=== PATIENT | male | born 1990 | race Hispanic/Latino ===

== ENCOUNTER 2018-11-18 20:27 | Emergency (ER) | payer OTHER ==
[2018-11-18 21:27] LABS: Protime INR 0.89
[2018-11-18 21:32] LABS: Absolute Lymphocytes (CBC) 2.2 K/uL (0.7-4.9); Absolute Monocytes 0.4 K/uL (0.1-1.3); Absolute Neutrophil 3.8 K/uL (1.8-8.0); Basophils % 0.4 % (0-1.3); Eosinophils % 2.8 % (0-4.4); Hematocrit 48.1 % (39.6-49.0); Lymphocytes % 33.1 % (15.3-44.8); MPV 8.2 fL (7.6-11.3); Monocytes % 6.2 % (3.3-12.3); RBC Red Blood Cell Count 5.66 M/uL (4.33-5.43)
[2018-11-18 21:33] LABS: BUN Blood Urea Nitrogen 9 mg/dL (7-18); Bicarbonate 27 mmol/L (21-32); Glucose Level 179 mg/dL (74-106); Potassium 3.7 mmol/L (3.5-5.1); Sodium Level 142 mmol/L (136-145)
--- NOTE | 2018-11-18 21:42 | ER ---
Nurse's Notes [facility] Name: Alfonso Weldon Age: 28 yrs Sex: Male : 1990 Arrival Date: 11/18/2018 Time: 20:28 Bed 5 Private MD: Diagnosis: Gastrointestinal hemorrhage, unspecified Presentation: 11/18 20:35 Presenting complaint: Patient states: bright red blood with every BM for 3 weeks [employer]LECT[employer]. ak1 pt seen 3 weeks ago for gastritis and treated, after finished medications bright red blood started in his BM. Transition of care: patient was not received from another setting of care. Onset of symptoms is unknown. Risk Assessment: Do you want to hurt yourself or someone else? Patient reports no desire to harm self or others. Initial Sepsis Screen: Does the patient meet any 2 criteria? No. Patient's initial sepsis screen is negative. Does the patient have a suspected source of infection? No. Patient's initial sepsis screen is negative. Care prior to arrival: None. 20:35 Method Of Arrival: Ambulatory ak1 20:35 Acuity: YONATAN 3 ak1 Triage Assessment: 20:37 General: Appears in no apparent distress. Behavior is calm, cooperative. Pain: Denies ak1 pain. Historical: - Allergies: 20:37 No Known Allergies; ak1 - Home Meds: 20:37 None [Active]; ak1 - PMHx: 20:37 None; ak1 - PSHx: 20:37 Hernia repair; ak1 - Immunization history:: Adult Immunizations unknown. - Social history:: Smoking status: Patient uses tobacco products, smokes one-half pack cigarettes per day, Patient uses alcohol, weekly. - Ebola Screening: : No symptoms or risks identified at this time. Screenin:56 Abuse screen: Denies threats or abuse. Denies injuries from another. Nutritional rr5 screening: No deficits noted. Tuberculosis screening: No symptoms or risk factors identified. Fall Risk IV access (20 points). Total Hung Fall Scale indicates No Risk (0-24 pts). Assessment: 20:50 General: Appears in no apparent distress. comfortable, Behavior is calm, cooperative, rr5 appropriate for age. Pain: Denies pain. Neuro: Level of Consciousness is awake, alert, obeys commands, Oriented to person, place, time, situation, Appropriate for age. Cardiovascular: Capillary refill < 3 seconds Patient's skin is warm and dry. Respiratory: Airway is patent Respiratory effort is even, unlabored, Respiratory pattern is regular, symmetrical. : No signs and/or symptoms were reported regarding the genitourinary system. EENT: No signs and/or symptoms were reported regarding the EENT system. Derm: Skin temperature is warm. Musculoskeletal: Circulation, motion, and sensation intact. Capillary refill < 3 seconds, Range of motion: intact in all extremities. 20:50 GI: Abdomen is round non-distended, Reports bloody stool. rr5 21:20 Reassessment: Patient appears in no apparent distress at this time. Patient is alert, rr5 oriented x 3, equal unlabored respirations, skin warm/dry/pink. no complaints made awaiting for result. 21:49 Reassessment: Patient appears in no apparent distress at this time. Patient is alert, rr5 oriented x 3, equal unlabored respirations, skin warm/dry/pink. discharge instruction given and explained without complaints made. Patient denies pain at this time. Vital Signs: 20:37 BP 139 / 89; Pulse 96; Resp 18; Temp 98.8(O); Pulse Ox 97% on R/A; Weight 79.38 kg (R); ak1 Height 5 ft. 5 in. (165.10 cm) (R); Pain 0/10; 21:30 BP 131 / 71; Pulse 85; Resp 17; Pulse Ox 99% on R/A; rr5 20:37 Body Mass Index 29.12 (79.38 kg, 165.10 cm) ak1 ED Course: 20:28 Patient arrived in ED. am2 20:36 Triage completed. ak1 20:37 Arm band placed on Patient placed in waiting room, Patient notified of wait time. ak1 20:40 Attila Chisholm MD is Attending Physician. gs 20:40 Patient has correct armband on for positive identification. Placed in gown. Bed in low rr5 position. Call light in reach. Side rails up X2. 20:50 Trevor Alejo RN is Primary Nurse. rr5 21:06 Inserted saline lock: 20 gauge in right antecubital area, using aseptic technique. ag4 Blood collected. 21:40 Michael Vigil MD is Referral Physician. gs 21:50 No provider procedures requiring assistance completed. IV discontinued, intact, rr5 bleeding controlled, No redness/swelling at site. Pressure dressing applied. Administered Medications: No medications were administered Outcome: 21:41 Discharge ordered by . 21:50 Discharged to home ambulatory, with family. rr5 21:50 Condition: stable 21:50 Discharge instructions given to patient, Instructed on discharge instructions, follow up and referral plans. Demonstrated understanding of instructions, follow-up care. 22:07 Patient left the ED. rr5 Signatures: Michelle Corbett RN RN ak1 Stephanie Garcia am2 Attila Chisholm MD MD Trevor Alejo RN RN rr5 Junior Curtis ag4
--- NOTE | 2018-11-18 21:42 | EDPHYS ---
Physician Documentation [facility] Name: Alfonso Weldon Age: 28 yrs Sex: Male : 1990 Arrival Date: 11/18/2018 Time: 20:28 Bed 5 Private MD: ED Physician Attila Chisholm HPI: 11/18 21:38 This 28 yrs old Male presents to ER via Ambulatory with complaints of Bloody gs Stools. 21:38 Onset: The symptoms/episode began/occurred 1 month(s) ago. Modifying factors: The gs symptoms are alleviated by nothing, The symptoms are aggravated by movement. Associate signs and symptoms: Pertinent positives: lower GI bleeding, mixed with stool, Pertinent negatives: abdominal pain, constipation. The patient has experienced similar episodes in the past, a few times. Historical: - Allergies: 20:37 No Known Allergies; ak1 - Home Meds: 20:37 None [Active]; ak1 - PMHx: 20:37 None; ak1 - PSHx: 20:37 Hernia repair; ak1 - Immunization history:: Adult Immunizations unknown. - Social history:: Smoking status: Patient uses tobacco products, smokes one-half pack cigarettes per day, Patient uses alcohol, weekly. - Ebola Screening: : No symptoms or risks identified at this time. ROS: 21:38 All other systems are negative. gs Exam: 21:38 Head/Face: Normocephalic, atraumatic. Eyes: Pupils equal round and reactive to light, gs extra-ocular motions intact. Lids and lashes normal. Conjunctiva and sclera are non-icteric and not injected. Cornea within normal limits. Periorbital areas with no swelling, redness, or edema. ENT: Nares patent. No nasal discharge, no septal abnormalities noted. Tympanic membranes are normal and external auditory canals are clear. Oropharynx with no redness, swelling, or masses, exudates, or evidence of obstruction, uvula midline. Mucous membranes moist. Neck: Trachea midline, no thyromegaly or masses palpated, and no cervical lymphadenopathy. Supple, full range of motion without nuchal rigidity, or vertebral point tenderness. No Meningismus. Chest/axilla: Normal chest wall appearance and motion. Nontender with no deformity. No lesions are appreciated. Cardiovascular: Regular rate and rhythm with a normal S1 and S2. No gallops, murmurs, or rubs. Normal PMI, no JVD. No pulse deficits. Respiratory: Lungs have equal breath sounds bilaterally, clear to auscultation and percussion. No rales, rhonchi or wheezes noted. No increased work of breathing, no retractions or nasal flaring. Abdomen/GI: Soft, non-tender, with normal bowel sounds. No distension or tympany. No guarding or rebound. No evidence of tenderness throughout. Back: No spinal tenderness. No costovertebral tenderness. Full range of motion. Skin: Warm, dry with normal turgor. Normal color with no rashes, no lesions, and no evidence of cellulitis. MS/ Extremity: Pulses equal, no cyanosis. Neurovascular intact. Full, normal range of motion. Neuro: Awake and alert, GCS 15, oriented to person, place, time, and situation. Cranial nerves II-XII grossly intact. Motor strength 5/5 in all extremities. Sensory grossly intact. Cerebellar exam normal. Normal gait. 21:38 Constitutional: The patient appears alert, awake. Vital Signs: 20:37 BP 139 / 89; Pulse 96; Resp 18; Temp 98.8(O); Pulse Ox 97% on R/A; Weight 79.38 kg (R); ak1 Height 5 ft. 5 in. (165.10 cm) (R); Pain 0/10; 21:30 BP 131 / 71; Pulse 85; Resp 17; Pulse Ox 99% on R/A; rr5 20:37 Body Mass Index 29.12 (79.38 kg, 165.10 cm) ak1 MDM: 21:11 Patient medically screened. 21:38 Differential diagnosis: hemorrhoids, diverticular dz. Data reviewed: vital signs, gs nurses notes, lab test result(s). 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 11/18 20:40 Order name: CBC with Diff; Complete Time: 21:38 11/18 20:40 Order name: Basic Metabolic Panel; Complete Time: 21:38 11/18 20:40 Order name: Protime (+inr); Complete Time: 21:30 gs Administered Medications: No medications were administered Disposition: 11/18/18 21:41 Discharged to Home. Impression: Gastrointestinal hemorrhage, unspecified. - Condition is Stable. - Discharge Instructions: Rectal Bleeding. - Work release form, Medication Reconciliation Form, Thank You Letter, Antibiotic Education, Prescription Opioid Use form. - Follow up: Michael Vigil MD; When: 2 - 3 days; Reason: Re-evaluation by your physician. Signatures: Dispatcher [employer] Michelle De La Paz RN RN ak1 Attila Chisholm MD MD Trevor Alejo RN RN rr5 Corrections: (The following items were deleted from the chart) 22:07 21:41 11/18/2018 21:41 Discharged to Home. Impression: Gastrointestinal hemorrhage, rr5 unspecified. Condition is Stable. Forms are Medication Reconciliation Form, Thank You Letter, Antibiotic Education, Prescription Opioid Use. Follow up: Michael Vigil; When: 2 - 3 days; Reason: Re-evaluation by your physician. gs
== END 2018-11-18 22:07 | disposition home or self-care (01) ==
LOC: ER 20:27
DX: K92.1 Melena (principal); F17.210 Nicotine dependence, cigarettes, uncomplicated
CPT/HCPCS: 36415; 80048; 85025; 85610

== ENCOUNTER 2019-04-10 21:21 | Emergency (ER) | payer OTHER ==
[2019-04-10] MEDS ORDERED: ONDANSETRON 4 MG/2 ML VIAL ONE (23:27)
[2019-04-10] MEDS ORDERED: NA CHLORIDE 0.9% 1,000 ML ONE (23:27)
[2019-04-10 23:33] LABS: Absolute Lymphocytes (CBC) 1.2 K/uL (0.7-4.9); Basophils % 0.4 % (0-1.3); Hematocrit 51.2 % (39.6-49.0); Lymphocytes % 12.6 % (15.3-44.8); MPV 7.9 fL (7.6-11.3); RBC Red Blood Cell Count 5.99 M/uL (4.33-5.43)
[2019-04-10 23:54] LABS: Potassium 3.4 mmol/L (3.5-5.1)
--- NOTE | 2019-04-11 00:42 | ER ---
Nurse's Notes [facility] Name: Alfonso Weldon Age: 28 yrs Sex: Male : 1990 Arrival Date: 04/10/2019 Time: 21:25 Bed 13 Private MD: Diagnosis: Heat exhaustion, unspecified Presentation: 04/10 21:31 Presenting complaint: Patient states: "I went to do community service today. 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 Then I started getting cramps in my neck. As soon as I went home I laid down on my recliner and then I started throwing up and I just keep throwing up" Patient states that he is still feeling "a little bit" short of breath but not as bad as he was previously. Transition of care: patient was not received from another setting of care. Onset of symptoms was April 10, 2019 at 16:00. Risk Assessment: Do you want to hurt yourself or someone else? Patient reports no desire to harm self or others. Initial Sepsis Screen: Does the patient meet any 2 criteria? HR > 90 bpm. No. Patient's initial sepsis screen is negative. Does the patient have a suspected source of infection? No. Patient's initial sepsis screen is negative. Care prior to arrival: None. 21:31 Method Of Arrival: Ambulatory [facility] 21:31 Acuity: YONATAN 3 aj1 Triage Assessment: 21:34 General: Appears in no apparent distress. comfortable, Behavior is calm, cooperative, aj1 appropriate for age. Pain: Complains of pain in forehead Pain currently is 5 out of 10 on a pain scale. Neuro: Level of Consciousness is awake, alert, obeys commands, Oriented to person, place, time, situation. Cardiovascular: Patient's skin is warm and dry. Respiratory: Airway is patent Respiratory effort is even, unlabored, Respiratory pattern is regular, symmetrical. Historical: - Allergies: 21:34 No Known Allergies; aj1 - Home Meds: 21:34 None [Active]; aj1 - PMHx: 21:34 None; aj1 - PSHx: 21:34 Hernia repair; aj1 - Immunization history:: Flu vaccine is not up to date. - Social history:: Smoking status: Patient/guardian denies using tobacco. - Ebola Screening: : Patient denies travel to an Ebola-affected area in the 21 days before illness onset. Screenin:55 Abuse screen: Denies threats or abuse. Nutritional screening: No deficits noted. jd3 Tuberculosis screening: No symptoms or risk factors identified. Fall Risk Ambulatory Aid- None/Bed Rest/Nurse Assist (0 pts). Gait- Normal/Bed Rest/Wheelchair (0 pts) Mental Status- Oriented to own ability (0 pts). Total Hung Fall Scale indicates No Risk (0-24 pts). Assessment: 22:52 General: Appears in no apparent distress. uncomfortable, Behavior is calm, cooperative, jd3 appropriate for age, Reports fatigue for 0-12 hours. Pain: Complains of pain in head Quality of pain is described as aching, pressure. Neuro: Level of Consciousness is awake, alert, obeys commands, Oriented to person, place, time, situation. Cardiovascular: Heart tones S1 S2 present Capillary refill < 3 seconds Patient's skin is warm and dry. Respiratory: Airway is patent Respiratory effort is even, unlabored, Respiratory pattern is regular, symmetrical, Breath sounds are clear bilaterally. GI: Abdomen is round non-distended, Bowel sounds present X 4 quads. Abd is soft and non tender X 4 quads. Reports nausea, vomiting. : No signs and/or symptoms were reported regarding the genitourinary system. EENT: No signs and/or symptoms were reported regarding the EENT system. Derm: Skin is intact, Skin is dry, Skin is normal, Skin temperature is warm. Musculoskeletal: Circulation, motion, and sensation intact. Range of motion: intact in all extremities. 23:41 Reassessment: Patient appears in no apparent distress at this time. Patient and/or jd3 family updated on plan of care and expected duration. Pain level reassessed. Patient is alert, oriented x 3, equal unlabored respirations, skin warm/dry/pink. awaiting results. 04/11 00:30 Reassessment: Patient appears in no apparent distress at this time. Patient and/or jd3 family updated on plan of care and expected duration. Pain level reassessed. Patient is alert, oriented x 3, equal unlabored respirations, skin warm/dry/pink. Patient states feeling better. 01:11 Reassessment: Patient appears in no apparent distress at this time. Patient and/or jd3 family updated on plan of care and expected duration. Pain level reassessed. Patient is alert, oriented x 3, equal unlabored respirations, skin warm/dry/pink. reported understanding of discharge instructions, even and steady gait upon discharge. Patient denies pain at this time. Patient states feeling better. Vital Signs: 04/10 21:34 BP 140 / 92; Pulse 93; Resp 18; Temp 98.2; Pulse Ox 95% on R/A; Weight 81.65 kg (R); aj1 Height 5 ft. 5 in. (165.10 cm) (R); 22:55 BP 122 / 88; Pulse 92; Resp 17 S; Pulse Ox 96% on R/A; jd3 23:41 BP 118 / 84; Pulse 86; Resp 17 S; Pulse Ox 100% on R/A; jd3 04/11 01:10 BP 103 / 59; Pulse 82; Resp 16; Pulse Ox 100% on R/A; jd3 04/10 21:34 Body Mass Index 29.95 (81.65 kg, 165.10 cm) aj1 ED Course: 04/10 21:25 Patient arrived in ED. cl3 21:33 Triage completed. aj1 21:34 Arm band placed on Patient placed in waiting room, Patient notified of wait time. aj1 22:34 Attila Chisholm MD is Attending Physician. gs 22:51 Aj Foley RN is Primary Nurse. jd3 22:56 Patient has correct armband on for positive identification. Bed in low position. Call jd3 light in reach. Side rails up X 1. 23:29 Inserted saline lock: 20 gauge in right antecubital area, using aseptic technique. jd3 Blood collected. 04/11 01:12 No provider procedures requiring assistance completed. IV discontinued, intact, jd3 bleeding controlled. Administered Medications: 04/10 23:29 Drug: NS 0.9% 1000 ml Route: IV; Rate: 1 bolus; Site: right antecubital; jd3 04/11 00:25 Follow up: Response: No adverse reaction; IV Status: Completed infusion; IV Intake: jd3 1000ml 04/10 23:29 Drug: Zofran 4 mg Route: IVP; Site: right antecubital; jd3 04/11 00:25 Follow up: Response: No adverse reaction jd3 Intake: 00:25 IV: 1000ml; Total: 1000ml. jd3 Outcome: 00:41 Discharge ordered by . gerhard 01:13 Discharged to home ambulatory. jd3 01:13 Condition: stable 01:13 Discharge instructions given to patient, Instructed on discharge instructions, follow up and referral plans. Demonstrated understanding of instructions, follow-up care. 01:14 Patient left the ED. jd3 Signatures: Alysa Cormier RN RN aj1 Attila Chisholm MD MD gs Davies, Jonathon, RN RN jd3 Delmi Machado cl3
--- NOTE | 2019-04-11 00:44 | EDPHYS ---
Physician Documentation [facility] Name: Alfonso Weldon Age: 28 yrs Sex: Male : 1990 Arrival Date: 04/10/2019 Time: 21:25 Bed 13 Private MD: ED Physician Attila Chisholm HPI: 04/11 00:38 This 28 yrs old Male presents to ER via Ambulatory with complaints of Stress . gs Heat Exhaustion. 00:38 The patient presents to the emergency department with vomiting, that is intermittent. gs Onset: The symptoms/episode began/occurred yesterday. Possible causes: heat exposure, was doing work outside for several hours exposed to heat. The symptoms are aggravated by nothing. The symptoms are alleviated by nothing. Associated signs and symptoms: Pertinent negatives: fever, loc. Severity of symptoms: At their worst the symptoms were severe in the emergency department the symptoms have improved moderately. The patient has experienced similar episodes in the past, a few times. Historical: - Allergies: 04/10 21:34 No Known Allergies; aj1 - Home Meds: 21:34 None [Active]; aj1 - PMHx: 21:34 None; aj1 - PSHx: 21:34 Hernia repair; aj1 - Immunization history:: Flu vaccine is not up to date. - Social history:: Smoking status: Patient/guardian denies using tobacco. - Ebola Screening: : Patient denies travel to an Ebola-affected area in the 21 days before illness onset. ROS: 04/11 00:38 All other systems are negative. gs Exam: 00:38 Head/Face: Normocephalic, atraumatic. Eyes: Pupils equal round and reactive to light, gs extra-ocular motions intact. Lids and lashes normal. Conjunctiva and sclera are non-icteric and not injected. Cornea within normal limits. Periorbital areas with no swelling, redness, or edema. ENT: Nares patent. No nasal discharge, no septal abnormalities noted. Tympanic membranes are normal and external auditory canals are clear. Oropharynx with no redness, swelling, or masses, exudates, or evidence of obstruction, uvula midline. Mucous membranes moist. Neck: Trachea midline, no thyromegaly or masses palpated, and no cervical lymphadenopathy. Supple, full range of motion without nuchal rigidity, or vertebral point tenderness. No Meningismus. Chest/axilla: Normal chest wall appearance and motion. Nontender with no deformity. No lesions are appreciated. Cardiovascular: Regular rate and rhythm with a normal S1 and S2. No gallops, murmurs, or rubs. Normal PMI, no JVD. No pulse deficits. Respiratory: Lungs have equal breath sounds bilaterally, clear to auscultation and percussion. No rales, rhonchi or wheezes noted. No increased work of breathing, no retractions or nasal flaring. Abdomen/GI: Soft, non-tender, with normal bowel sounds. No distension or tympany. No guarding or rebound. No evidence of tenderness throughout. Back: No spinal tenderness. No costovertebral tenderness. Full range of motion. Skin: Warm, dry with normal turgor. Normal color with no rashes, no lesions, and no evidence of cellulitis. MS/ Extremity: Pulses equal, no cyanosis. Neurovascular intact. Full, normal range of motion. Neuro: Awake and alert, GCS 15, oriented to person, place, time, and situation. Cranial nerves II-XII grossly intact. Motor strength 5/5 in all extremities. Sensory grossly intact. Cerebellar exam normal. Normal gait. 00:38 Constitutional: The patient appears alert, awake. Vital Signs: 04/10 21:34 BP 140 / 92; Pulse 93; Resp 18; Temp 98.2; Pulse Ox 95% on R/A; Weight 81.65 kg (R); aj1 Height 5 ft. 5 in. (165.10 cm) (R); 22:55 BP 122 / 88; Pulse 92; Resp 17 S; Pulse Ox 96% on R/A; jd3 23:41 BP 118 / 84; Pulse 86; Resp 17 S; Pulse Ox 100% on R/A; jd3 04/11 01:10 BP 103 / 59; Pulse 82; Resp 16; Pulse Ox 100% on R/A; jd3 04/10 21:34 Body Mass Index 29.95 (81.65 kg, 165.10 cm) aj1 MDM: 04/10 23:04 Patient medically screened. 04/11 00:38 Data reviewed: vital signs, nurses notes, lab test result(s). Counseling: I had a gs detailed discussion with the patient and/or guardian regarding: the historical points, exam findings, and any diagnostic results supporting the discharge/admit diagnosis, the presence of at least one elevated blood pressure reading (>120/80) during this emergency department visit, lab results, the need for outpatient follow up. Response to treatment: the patient's symptoms have markedly improved after treatment, and as a result, I will discharge patient. 04/10 23:07 Order name: CBC with Diff; Complete Time: 00:07 04/10 23:07 Order name: Basic Metabolic Panel; Complete Time: 00: gs 04/10 23: Order name: CPK; Complete Time: 00: Administered Medications: 04/10 23:29 Drug: NS 0.9% 1000 ml Route: IV; Rate: 1 bolus; Site: right antecubital; jd3 04/11 00:25 Follow up: Response: No adverse reaction; IV Status: Completed infusion; IV Intake: jd3 1000ml 04/10 23:29 Drug: Zofran 4 mg Route: IVP; Site: right antecubital; jd3 04/11 00:25 Follow up: Response: No adverse reaction jd3 Disposition: 04/11/19 00:41 Discharged to Home. Impression: Heat exhaustion, unspecified. - Condition is Stable. - Discharge Instructions: Heat Exhaustion Information. - Medication Reconciliation Form, Thank You Letter, Antibiotic Education, Prescription Opioid Use form. - Follow up: Private Physician; When: 2 - 3 days; Reason: Re-evaluation by your physician. Signatures: Dispatcher [employer] Alysa Buchanan RN RN aj1 Attila Chisholm MD MD gs Davies, Jonathon, RN RN jd3 Corrections: (The following items were deleted from the chart) 01:14 00:41 04/11/2019 00:41 Discharged to Home. Impression: Heat exhaustion, unspecified. jd3 Condition is Stable. Forms are Medication Reconciliation Form, Thank You Letter, Antibiotic Education, Prescription Opioid Use. Follow up: Private Physician; When: 2 - 3 days; Reason: Re-evaluation by your physician. gs
[2019-04-11 02:23] VITALS: TEMP 98.2
[2019-04-11 02:26] VITALS: O2SAT 100
[2019-04-11 02:27] VITALS: BP 103/59
== END 2019-04-11 01:14 | disposition home or self-care (01) ==
LOC: ER 21:21
DX: T67.5XXA Heat exhaustion, unspecified, initial encounter (principal); X58.XXXA Exposure to other specified factors, initial encounter
CPT/HCPCS: 96361; 85025; 80048; 36415; 82550; 96374; 99284; J7030; J2405

== ENCOUNTER 2019-11-13 23:30 | Emergency (ER) | payer OTHER, SELFPAY ==
[2019-11-13 23:57] LABS: Absolute Lymphocytes (CBC) 2.6 K/uL (0.7-4.9); Basophils % 0.6 % (0-1.3); Hematocrit 47.8 % (39.6-49.0); Lymphocytes % 34.5 % (15.3-44.8); MPV 7.8 fL (7.6-11.3)
[2019-11-14] LABS: Protime INR 0.94
[2019-11-14 00:17] LABS: ALT/SGPT 45 U/L (12-78); Albumin 4.1 g/dL (3.4-5.0); Alkaline Phosphatase 69 U/L (45-117); BUN Blood Urea Nitrogen 11 mg/dL (7-18); Bicarbonate 25 mmol/L (21-32); Bilirubin Direct < 0.1 mg/dL (0-0.2); Bilirubin Total 0.2 mg/dL (0.2-1.0); Glucose Level 123 mg/dL (74-106); NT PRO-BNP 16 pg/mL (<125); Protein, Total 7.9 g/dL (6.4-8.2); Sodium Level 140 mmol/L (136-145); Troponin (Emerg Dept Use Only) < 0.02 ng/mL (0.0-0.045)
[2019-11-14 00:18] LABS: AST/SGOT 20 U/L (15-37); Magnesium 2.1 mg/dL (1.8-2.4); Potassium 3.6 mmol/L (3.5-5.1)
--- NOTE | 2019-11-14 01:18 | ER ---
Nurse's Notes [facility] Name: Alfonso Weldon Age: 29 yrs Sex: Male : 1990 Arrival Date: 11/13/2019 Time: 23:33 Bed 26 Private MD: Diagnosis: Chest pain, unspecified Presentation: 11/12 23:42 Chief complaint: Patient states: I FELT SOME CHEST PAIN YESTERDAY, PINCHING FROM THE rv INSIDE, 7/10 PAIN SCALE. DENIES SOB. TODAY, ABOUT AN HOUR AGO, CHEST PAIN IS ON AND OFF AND I WAS JUST WATCHING TV. Coronavirus screen: Proceed with normal triage. Ebola Screen: No symptoms or risks identified at this time. Initial Sepsis Screen: Does the patient meet any 2 criteria? No. Patient's initial sepsis screen is negative. Does the patient have a suspected source of infection? No. Patient's initial sepsis screen is negative. Risk Assessment: Do you want to hurt yourself or someone else? Patient reports no desire to harm self or others. Onset of symptoms was November 13, 2019 at 23:00. 23:42 Method Of Arrival: Ambulatory rv 23:42 Acuity: YONATAN 3 rv Triage Assessment: 23:45 General: Appears in no apparent distress. comfortable, Behavior is calm, cooperative. rv Pain: Complains of pain in anterior aspect of left upper chest Pain does not radiate. Pain currently is 7 out of 10 on a pain scale. Quality of pain is described as pinching, Pain began 1 hour ago. Is intermittent. EENT: No signs and/or symptoms were reported regarding the EENT system. Neuro: Level of Consciousness is awake, alert, obeys commands, Oriented to person, place, time, situation. Cardiovascular: Patient's skin is warm and dry. Rhythm is sinus rhythm. Respiratory: Airway is patent Breath sounds are clear bilaterally. Derm: Skin is intact. Historical: - Allergies: 23:45 No Known Allergies; rv - Home Meds: 23:45 None [Active]; rv - PMHx: 23:45 None; rv - PSHx: 23:45 Hernia repair; rv - Immunization history:: Adult Immunizations up to date, Flu vaccine is not up to date. - Social history:: Smoking status: Patient/guardian denies using tobacco, Stopped _ months ago 6. Screenin:48 Abuse screen: Denies threats or abuse. Denies injuries from another. Nutritional rv screening: No deficits noted. Tuberculosis screening: No symptoms or risk factors identified. Fall Risk None identified. Assessment: 23:48 Reassessment: SEE TRIAGE NOTES. rv 11/13 00:53 Reassessment: Patient appears in no apparent distress at this time. Patient and/or rv family updated on plan of care and expected duration. Pain level reassessed. Patient is alert, oriented x 3, equal unlabored respirations, skin warm/dry/pink. 01:00 Reassessment: EDWARDO NUGENT, EXPLAINED THE RESULTS TO THE PATIENT AND PLAN OF CARE. PATIENT rv UNDERSTOOD AND AGREED. Vital Signs: 11/12 23:42 BP 141 / 102; Pulse 77; Resp 17; Temp 99.4; Pulse Ox 98% on R/A; Weight 83.46 kg; rv Height 5 ft. 5 in. (165.10 cm); Pain 7/10; 11/13 00:05 BP 133 / 88; Pulse 76; Resp 20; Pulse Ox 96% on R/A; rv 00:52 BP 129 / 91; Pulse 84; Resp 20; Pulse Ox 97% on R/A; rv 01:36 BP 127 / 89; Pulse 77; Resp 20; Temp 99; Pulse Ox 96% on R/A; rv 11/12 23:42 Body Mass Index 30.62 (83.46 kg, 165.10 cm) rv ED Course: 11/12 23:33 Patient arrived in ED. cl3 23:35 Bishop Craig [facility] jm 23:35 Rigoberto Jones MD is Attending Physician. [facility] 23:42 Rowdy Abarca RN is Primary Nurse. rv 23:45 Triage completed. rv 23:48 Arm band placed on Patient placed in the treatment room, on a stretcher, Patient rv notified of wait time. EKG completed in triage. Results shown to . 23:48 Placed in gown. Bed in low position. Call light in reach. Side rails up X 1. Cardiac rv monitor on. Pulse ox on. NIBP on. 23:50 Patient maintains SpO2 saturation greater than 95% on room air. rv 23:51 Initial lab(s) drawn, by me, sent to lab. EKG done, by ED staff. Inserted saline lock: lt1 20 gauge in right antecubital area, using aseptic technique. 11/13 00:38 XRAY Chest (1 view) In Process Unspecified. EDMS 01:17 John Michel MD is Referral Physician. jmm 01:37 No provider procedures requiring assistance completed. IV discontinued, intact, rv bleeding controlled, No redness/swelling at site. Pressure dressing applied. Administered Medications: No medications were administered Outcome: 01:17 Discharge ordered by MD. jmm 01:41 Discharged to home ambulatory. rv 01:41 Condition: good 01:41 Discharge instructions given to patient, Instructed on discharge instructions, follow up and referral plans. Demonstrated understanding of instructions, follow-up care. 01:41 Patient left the ED. rv Signatures: Dispatcher [employer] EDMS Bishop Craig PA PA jmm Vicente, Ronaldo, RN RN Lisa Pina lt1 Delmi Machado cl3
--- NOTE | 2019-11-14 01:18 | EDPHYS ---
Physician Documentation [facility] Name: Alfonso Weldon Age: 29 yrs Sex: Male : 1990 Arrival Date: 11/13/2019 Time: 23:33 Bed 26 Private MD: ED Physician Rigoberto Jones HPI: 11/12 23:36 This 29 yrs old Male presents to ER via Ambulatory with complaints of Chest jmm Pain. 23:36 The patient or guardian reports chest pain that is located primarily in the substernal [facility] area. The pain does not radiate. Associated signs and symptoms: Pertinent negatives: abdominal pain, lower extremity pain, lower extremity swelling, lightheadedness, near syncope, palpitations, recent travel, shortness of breath. The chest pain is described as aching. Duration: The patient or guardian reports a single episode. Modifying factors: The symptoms are alleviated by nothing. the symptoms are aggravated by nothing. This is a 29 year old male with no chronic medical conditions that presents to the ED with complaints of chest pain beginning yesterday which has been intermittent. Pain in creased approx 1 hour ago which lasted for approx 5 minutes described as sharp. Pain does not radiate. . Historical: - Allergies: 23:45 No Known Allergies; rv - Home Meds: 23:45 None [Active]; rv - PMHx: 23:45 None; rv - PSHx: 23:45 Hernia repair; rv - Immunization history:: Adult Immunizations up to date, Flu vaccine is not up to date. - Social history:: Smoking status: Patient/guardian denies using tobacco, Stopped _ months ago 6. ROS: 23:36 Constitutional: Negative for fever, chills, and weight loss. jmm 23:36 Cardiovascular: Positive for chest pain. 23:36 Respiratory: Negative for shortness of breath. 23:36 All other systems are negative. Exam: 23:36 Constitutional: This is a well developed, well nourished patient who is awake, alert, jmm and in no acute distress. Head/Face: atraumatic. Eyes: EOMI, no conjunctival erythema appreciated ENT: Moist Mucus Membranes Neck: Trachea midline, Supple Chest/axilla: Normal chest wall appearance and motion. Cardiovascular: Regular rate and rhythm. No edema appreciated Respiratory: Normal respirations, no respiratory distress appreciated Abdomen/GI: Non distended, soft Back: Normal ROM Skin: General appearance color normal MS/ Extremity: Moves all extremities, no obvious deformities appreciated, no edema noted to the lower extremities Neuro: Awake and alert, normal gait Psych: Behavior is normal, Mood is normal, Patient is cooperative and pleasant 11/13 01:07 Chest/axilla: Inspection: normal, Palpation: tenderness, that is moderate, of the [facility] anterior aspect of left upper chest. Vital Signs: 11/12 23:42 BP 141 / 102; Pulse 77; Resp 17; Temp 99.4; Pulse Ox 98% on R/A; Weight 83.46 kg; rv Height 5 ft. 5 in. (165.10 cm); Pain 02/11; 11/13 00:05 BP 133 / 88; Pulse 76; Resp 20; Pulse Ox 96% on R/A; rv 00:52 BP 129 / 91; Pulse 84; Resp 20; Pulse Ox 97% on R/A; rv 01:36 BP 127 / 89; Pulse 77; Resp 20; Temp 99; Pulse Ox 96% on R/A; rv 11/12 23:42 Body Mass Index 30.62 (83.46 kg, 165.10 cm) rv MDM: 11/12 23:39 Patient medically screened. [facility] 11/13 01:15 Data reviewed: vital signs, nurses notes, lab test result(s), EKG, radiologic studies, [facility] plain films. ED course: HEART SCORE = 0 PERC NEGATIVE. 11/12 23:36 Order name: Basic Metabolic Panel [facility] 11/12 23:36 Order name: CBC with Diff; Complete Time: 23:59 [facility] 11/12 23:36 Order name: LFT's; Complete Time: 00:21 [facility] 11/12 23:36 Order name: Magnesium; Complete Time: 00:21 [facility] 11/12 23:36 Order name: NT PRO-BNP; Complete Time: 00:21 [facility] 11/12 23:36 Order name: PT-INR; Complete Time: 00:04 [facility] 11/12 23:36 Order name: Troponin (emerg Dept Use Only); Complete Time: 00:21 [facility] 11/12 23:36 Order name: XRAY Chest (1 view) [facility] 11/12 23:36 Order name: EKG; Complete Time: 23:37 [facility] 11/12 23:36 Order name: Cardiac monitoring; Complete Time: 23:51 [facility] 11/12 23:36 Order name: EKG - Nurse/Tech; Complete Time: 23:51 [facility] 11/12 23:36 Order name: IV Saline Lock; Complete Time: 23:51 [facility] 11/12 23:36 Order name: Labs collected and sent; Complete Time: 23:52 [facility] 11/12 23:36 Order name: Basic Metabolic Panel; Complete Time: 00:21 [facility] 11/12 23:36 Order name: O2 Per Protocol; Complete Time: 23:50 [facility] 11/12 23:36 Order name: O2 Sat Monitoring; Complete Time: 23:51 [facility] Administered Medications: No medications were administered Disposition: 11/14/19 01:17 Discharged to Home. Impression: Chest pain, unspecified. - Condition is Stable. - Discharge Instructions: Nonspecific Chest Pain. - Medication Reconciliation Form, Thank You Letter, Antibiotic Education, Prescription Opioid Use form. - Follow up: John Michel MD; When: 2 - 3 days; Reason: Recheck today's complaints, Continuance of care, Re-evaluation by your physician. Addendum: 11/16/2019 07:41 Co-signature as Attending Physician, Rigoberto Jones MD I agree with the assessment and c vela plan of care. Signatures: Dispatcher [employer] Rigoberto Arce MD MD cha Mickail, Joel, PA PA [facility] Rowdy Abarca RN RN rv Corrections: (The following items were deleted from the chart) 11/13 01:41 01:17 11/14/2019 01:17 Discharged to Home. Impression: Chest pain, unspecified. rv Condition is Stable. Forms are Medication Reconciliation Form, Thank You Letter, Antibiotic Education, Prescription Opioid Use. Follow up: John Michel; When: 2 - 3 days; Reason: Recheck today's complaints, Continuance of care, Re-evaluation by your physician. [facility]
[2019-11-14 01:52] VITALS: BP 127/89; TEMP 99; O2SAT 96
--- NOTE | 2019-11-14 07:54 | RAD REPORT ---
EXAM DESCRIPTION: RAD - Chest Single View - 11/14/2019 12:37 am CLINICAL HISTORY: CHEST PAIN COMPARISON: None TECHNIQUE: AP portable chest image was obtained 11/14/2019 12:37 am . FINDINGS: Lungs are clear. Heart and vasculature are normal. No measurable pleural effusion and no p neumothorax. No acute bony abnormality seen. No acute aortic findings suspected. IMPRESSION: No acute cardiopulmonary process.
--- NOTE | 2019-11-14 07:59 | EKG ---
Test Date: 2019-11-13 Test Time: 23:41:22 Education Liaison: JOSE MIGUELT MEASUREMENT RESULTS: Intervals: Rate: 73 LA: 146 QRSD: 98 QT: 352 QTc: 387 [place]: P: 8 LA: 146 QRS: -20 T: 6 INTERPRETIVE STATEMENTS: Normal sinus rhythm Normal ECG No previous ECG available for comparison Electronically Signed On 11-14-19 07:58:22 CDT by John Michel
== END 2019-11-14 01:41 | disposition home or self-care (01) ==
LOC: ER 23:30
DX: R07.9 Chest pain, unspecified (principal); Z87.891 Personal history of nicotine dependence
CPT/HCPCS: 36415; 71045; 80048; 80076; 83735; 83880; 84484; 85025; 85610; 93005; 99285

== ENCOUNTER → 2023-08-26 | Emergency (ER) | payer OTHER ==
[~2023-08-26] MED LIST: FAMOTIDINE 20 MG/2 ML VIAL IV ONE; NA CHLORIDE 0.9% 1,000 ML ONE; ONDANSETRON 4 MG/2 ML VIAL ONE
--- OUTSIDE RECORDS SUMMARY | 2023-08-26 21:23 | XMS REPORT | Continuity of Care Document ---
Author Name Unknown Address [address] 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 Role Phone PCP, PATIENT DOES NOT HAVE A Primary Care Physic sea Unavailable MANJIT Attending Clinician Unavailable ALFREDO MAYES Attending Clinician Unavailable Geovanny Lopez Attending Clinician [phone] Alfredo Mayes MD Attending Clinician [phone] Lisa Wilson MD Attending Clinician [phone] LISA WILSON Attending Clinician Unavailable Doctor Unassigned, Aragon Attending Clinician U dorian Garcia RN, Taisha Alonso Attending Clinician [phone] Fallon HUERTA, Dorothy Lau Attending Clinician Unavail travon Caldwell NP, Mandie Cano Attending Clinician [phone] Yao Bustamante MD Attending Clinician [phone] Mohini Liu MD Attending Clinician [phone] MANJIT Admitting Clinician Unavailable ALFREDO MAYES Admitting Clinician Unavailable Alfredo Mayes MD Admitting Clinician [phone] Mohini Liu MD Admitting Clinician [phone] Problems Condition Name Condition Details Condition Category Status Onset Date Resolution Date Last Treatment Date Treating Clinician Comments Source Acute recurrent pancreatit is Acute recurrent pancreatit is Disease Active 09-04 00:00: 00 [facility] Acute pancreatit is without infection or necrosis Acute pancreatit is without infection or necrosis Disease Active 10-15 00:00: 00 [facility] Obesity (BMI 30-39.9) Obesity (BMI 30-39.9) Disease Active 10-15 00:00: 00 [facility] Allergies, Adverse Reactions, Alerts Allergy Name Allergy Type Status Severity Reaction(s) Onset Date Inactive Date Treating Clinician Comments Source NO KNOWN ALLERGIE S Drug Class Active [facility] Social History Social Habit Start Date Stop Date Quantity Comments Source Exposure to SARS-CoV-2 (event) Not sure [facility] Alcohol intake 2020-12-08 00:00:00 2020-12-08 00:00:00 Current drinker of alcohol (finding) [facility] Tobacco use and exposure 2020-10-16 00:00:00 2020-10-16 00:00:[address] [facility] Sex Assigned At 1990 00:00:00 1990 00:00:00 [facility] Smoking Status Start Date Stop Date Source Former smoker 2020-10-16 00:00:00 2020-10-16 00:00:00 [facility] Medications Ordered Medication Name Filled Medication Name Start Date Stop Date Current Medication? Ordering Clinician Indication Dosage Frequency Signature (SIG) Comments Components Source foLIC acid (FOLATE) tablet 1 mg 09-05 16:15: 00 09-05 15:15 :00 No 1mg 1 mg, Oral, ONCE, 1 dose, On Sat09/05/21 at 1015, Routine [facility] thiamine (VITAMIN B1) tablet 100 mg 09-05 15:15: 00 Yes 100mg 100 mg, Oral, DAILY, First dose on Sat09/05/21 at 0915, Until Discontinu ed, Routine [facility] cholecalcif elia (vitamin D3) tablet 2,000 Units 09-05 15:15: 00 Yes 2000U 2,000 Units, Oral, DAILY, First dose on Sat09/05/21 at 0915, Until Discontinu ed, Routine [facility] enoxaparin (LOVENOX) injection 40 mg 09-05 15:00: 00 Yes 40mg 40 mg, Subcutaneo us, DAILY, First dose on Sat09/05/21 at 0900, Until Discontinu ed, Routine [facility] NaCl 0.9% (NS) PEDIATRIC IV infusion 09-05 06:45: 00 Yes IV Infusion, at 125 mL/hr, CONTINUOUS , Starting on Sat09/05/21 at 0045, Until Discontinu ed, Routine [facility] ondansetron (ZOFRAN (PF)) injection 4 mg 09-05 05:42: 41 Yes 4mg 4 mg, Slow IV Push, Q6HPRN, Starting on Sat09/04/21 at 2342, Until Discontinu ed, Routine, Nausea and Vomiting (N/V) [facility] morpHINE injection 2 mg 09-05 05:41: 41 09-06 05:40 :41 No 2mg 2 mg, Slow IV Push, Q4HPRN, Starting on Sat09/04/21 at 2341, Until Sat09/05/21 at 2340, Routine, Pain (scale 7-10) [facility] HYDROcodone -acetaminop hen (NORCO 5) 5-325 mg tablet 1 tablet 09-05 05:41: 37 09-07 05:40 :37 No 1{tbl} 1 tablet, Oral, Q6HPRN, Starting on Sat09/04/21 at 2341, Until Sat09/06/21 at 2340, Routine, Pain (scale 4-6) [facility] acetaminoph en (TYLENOL) tablet 650 mg 09-05 05:41: 33 Yes 650mg 650 mg, Oral, Q6HPRN, Starting on Sat09/04/21 at 2341, Until Discontinu ed, Routine, Pain (scale 1-3) [facility] NaCl 0.9% (NS) bolus infusion 1,000 mL 09-05 02:00: 00 09-05 03:43 :00 No 1000mL at 999 mL/hr, 1,000 mL, IV Infusion, ONCE, 1 dose, On Sat09/04/21 at 2000, STAT [facility] ondansetron (ZOFRAN (PF)) injection 4 mg 09-05 02:00: 00 09-05 01:16 :00 No 4mg 4 mg, Slow IV Push, ONCE, 1 dose, On Sat09/04/21 at 2000, JOVITA [facility] morpHINE injection 4 mg 09-05 02:00: 00 09-05 01:17 :00 No 4mg 4 mg, Slow IV Push, ONCE, 1 dose, On Sat09/04/21 at 2000, STAT [facility] iopamidol (ISOVUE 370-500 mL) injection 100 mL 09-05 01:05: 00 09-05 01:06 :00 No [id number] 100mL 100 mL, Intravenou s, ONCE, 1 dose, On Sat09/04/21 at 1915, Routine [facility] ergocalcife rol, vitamin d2, 1,250 mcg (50,000 unit) capsule 09-05 00:00: 00 10-26 04:59 :00 No [id number] Take 1 capsule by mouth weekly for 8 doses. [facility] NaCl 0.9% (NS) bolus infusion 1,000 mL 09-04 23:45: 00 09-05 01:23 :00 No 1000mL at 999 mL/hr, 1,000 mL, IV Infusion, ONCE, 1 dose, On Sat09/04/21 at 1745, STAT [facility] ondansetron (ZOFRAN (PF)) injection 4 mg 09-04 23:45: 00 09-04 22:53 :00 No 4mg 4 mg, Slow IV Push, ONCE, 1 dose, On Sat09/04/21 at 1745, JOVITA [facility] Polyethylen e Glycol 3350 (MIRALAX) powder 17 g 10-17 16:15: 00 10-17 15:35 :00 No 17g 17 g, Oral, ONCE, 1 dose, 10/17/20 at 1115, Routine [facility] NaCl 0.9% (NS) IV infusion 1,000 mL 10-16 08:00: 00 Yes 1000mL at 150 mL/hr, IV Infusion, CONTINUOUS , Starting 10/16/20 at 0300, Until Discontinu ed, Routine [facility] NaCl 0.9% (NS) bolus infusion 1,000 mL 10-16 08:00: 00 10-16 08:16 :00 No 1000mL at 999 mL/hr, 1,000 mL, IV Infusion, ONCE, 1 dose, [facility] 10/16/20 at 0300, JOVITA [facility] pantoprazol e (PROTONIX) 40 mg in NaCl 0.9% (NS) 100 mL MINI-BAG 10-16 07:00: 00 Yes 40mg 40 mg, IV Piggyback, Q12H, First dose (after last reorder) on 10/16/20 at 0100, Until Discontinu ed, 100 mL [facility] D5W 0.45% NaCl (1/2NS) IV infusion 1,000 mL 10-15 23:30: 00 10-16 06:56 :33 No 1000mL at 125 mL/hr, 1,000 mL, IV Infusion, CONTINUOUS , Starting 10/15/20 at 1730, Until 10/16/20 at 0056, Routine [facility] enoxaparin (LOVENOX) injection 30 mg 10-15 23:00: 00 Yes 30mg 30 mg, Subcutaneo us, DAILY, First dose on 10/15/20 at 1700, Until Discontinu ed, Routine [facility] morpHINE injection 2 mg 10-15 22:25: 46 10-16 22:24 :46 No 2mg 2 mg, Slow IV Push, Q4HPRN, Starting 10/15/20 at 1625, Until 10/16/20 at 1724, Routine, Pain (scale 7-10) [facility] traMADoL (ULTRAM) tablet 50 mg 10-15 22:25: 41 10-17 22:24 :41 No 50mg 50 mg, Oral, Q8HPRN, Starting 10/15/20 at 1625, Until 10/17/20 at 1724, Routine, Pain (scale 4-6) [facility] acetaminoph en (TYLENOL) tablet 650 mg 10-15 22:25: 37 Yes 650mg 650 mg, Oral, Q6HPRN, Starting 10/15/20 at 1625, Until Discontinu ed, Routine, Pain (scale 1-3) [facility] iohexol (OMNIPAQUE 350 BULK-100 mL) injection 120 mL 10-15 19:45: 00 10-15 19:32 :00 No [id number] 120mL 120 mL, Intravenou s, ONCE, 1 dose, 10/15/20 at 1345, Routine [facility] dicyclomine (BENTYL) injection 20 mg 10-15 18:45: 00 10-15 18:02 :00 No 20mg 20 mg, Intramuscu lar, ONCE, 1 dose, 10/15/20 at 1245, Routine [facility] pantoprazol e (PROTONIX) 40 mg in NaCl 0.9% (NS) 100 mL MINI-BAG 10-15 18:45: 00 10-15 18:10 :00 No 40mg 40 mg, IV Piggyback, ONCE, 1 dose, 10/15/20 at 1245, 100 mL [facility] ondansetron (ZOFRAN (PF)) injection 4 mg 10-15 18:45: 00 10-15 17:55 :00 No 4mg 4 mg, Slow IV Push, ONCE, 1 dose, 10/15/20 at 1245, JOVITA [facility] NaCl 0.9% (NS) bolus infusion 1,000 mL 10-15 17:45: 00 10-15 20:00 :00 No 1000mL at 999 mL/hr, 1,000 mL, IV Infusion, ONCE, 1 dose, 10/15/20 at 1145, JOVITA [facility] No known medications No Un cortney ity [facility] No known medications No Un cortney ity [facility] No known medications No Un cortney ity [facility] No known medications No Un cortney ity [facility] No known medications No Un cortney ity [facility] No known medications No Un cortney ity [facility] Vital Signs Vital Name Observation Time Observation Value Comments S ource Systolic blood pressure 2021-09-05 17:00:00 127 mm[Hg] [facility] Diastolic blood pressure 2021-09-05 17:00:00 90 mm[Hg] [facility] Heart rate 2021-09-05 17:00:00 77 /min [facility] acute hospital Respiratory rate 2021-09-05 17:00:00 16 /min [facility] Oxygen saturation in Arterial blood by Pulse oximetry 2021-09-05 17:00:00 96 /min [facility] Body temperature 2021-09-05 13:00:[address] [facility] Body weight 2021-09-05 10:00:00 90.992 kg [facility] BMI 2021-09-05 10:00:00 32.38 kg/m2 [facility] Body height 2021-09-05 05:25:00 167.6 cm [facility] Systolic blood pressure 2020-12-08 19:02:00 137 mm[Hg] [facility] Diastolic blood pressure 2020-12-08 19:02:00 86 mm[Hg] [facility] Body weight 2020-12-08 19:02:00 88.361 kg [facility] BMI 2020-12-08 19:02:00 31.44 kg/m2 [facility] Oxygen saturation in Arterial blood by Pulse oximetry 2020-12-08 19:02:00 99 /min [facility] Systolic blood pressure 2020-10-17 20:37:00 140 mm[Hg] [facility] Diastolic blood pressure 2020-10-17 20:37:00 90 mm[Hg] [facility] Heart rate 2020-10-17 20:37:00 72 /min [facility] acute [facility] Body temperature 2020-10-17 20:37:[address] [facility] Respiratory rate 2020-10-17 20:37:00 18 /min [facility] Oxygen saturation in Arterial blood by Pulse oximetry 2020-10-17 20:37:00 95 /min [facility] Body height 2020-10-15 22:48:00 167.6 cm [facility] Body weight 2020-10-15 22:48:00 85.458 kg [facility] BMI 2020-10-15 22:48:00 30.41 kg/m2 [facility] Procedures Procedure Date / Time Performed Performing Clinician Source LIPASE 2021-09-05 10:36:00 Gerber [facility] BASIC METABOLIC PANEL (NA, K, CL, CO2, GLUCOSE, BUN, CREATININE, CA) 2021-09-05 10:36:00 Gerber [facility] CBC WITH DIFF 2021-09-05 10:36:00 Gerber [facility] COVID-19 (ID NOW RAPID TESTING) 2021-09-05 02:07:[address] [facility] LAB ONLY COVID INTERPRETATION 2021-09-05 02:07:[address] [facility] CT ABDOMEN PELVIS W CONTRAST 2021-09-05 01:10:[address] [facility] URINALYSIS 2021-09-04 23:00:00 Geovanny Fleming [facility] LIPASE 2021-09-04 22:54:00 Geovanny Fleming [facility] MAGNESIUM 2021-09-04 22:54:00 [facility] COMP. METABOLIC PANEL (48369) 2021-09-04 22:54:[address] [facility] LIPID PANEL (02023)(TOTAL CHOLESTEROL, TRIGLYCERIDES, HDL) 2021-09-04 22:54:[address] [facility] CBC WITH DIFF 2021-09-04 22:54:00 Geovanny Fleming [facility] CONSENT/REFUSAL FOR DIAGNOSIS AND TREATMENT 2021-09-04 22:09:08 Doctor Unassigned, Aragon [facility] NOTICE OF PRIVACY PRACTICES 2021-09-04 22:08:46 Doctor Unassigned, Aragon [facility] CONSENT/REFUSAL FOR DIAGNOSIS AND TREATMENT 2020-12-08 18:52:04 Doctor Unassigned, Aragon [facility] PHOSPHORUS 2020-10-17 08:27:00 Noe junaid [facility] MAGNESIUM 2020-10-17 08:27:00 Noe junaid [facility] COMP. METABOLIC PANEL (56904) 2020-10-17 08:27:[address] [facility] CBC WITH DIFF 2020-10-17 08:27:00 Mohini Liu [facility] N-TERMINAL PRO-BNP 2020-10-17 08:27:00 Noe [facility] PHOSPHORUS 2020-10-16 08:26:00 Mohini Liu [facility] LIPASE 2020-10-16 08:26:00 Yao Bustamante [facility] MAGNESIUM 2020-10-16 08:26:00 Noe junaid [facility] VITAMIN B12, LEVEL 2020-10-16 08:26:00 Noe [facility] BILI UNCONJUGATED/BILI CONJUG 2020-10-16 08:26:[address] [facility] TROPONIN I 2020-10-16 08:26:00 Noe junaid [facility] COMP. METABOLIC PANEL (44170) 2020-10-16 08:26:[address] [facility] IRON PANEL 2020-10-16 08:26:00 Noe junaid [facility] SEDIMENTATION RATE 2020-10-16 08:26:[address] [facility] CBC WITH DIFF 2020-10-16 08:26:00 Yao Bustamante [facility] PROTHROMBIN TIME / INR 2020-10-16 08:26:[address] [facility] N-TERMINAL PRO-BNP 2020-10-16 08:26:[address] [facility] VITAMIN D, 25-OH 2020-10-16 08:26:00 Mohini Liu [facility] CT ABDOMEN PELVIS W CONTRAST 2020-10-15 19:34:[address] [facility] URINALYSIS 2020-10-15 19:27:00 Mandie Caldwell [facility] COVID-19 (ID NOW RAPID TESTING) 2020-10-15 19:27:[address] [facility] US GALL BLADDER 2020-10-15 19:06:24 [facility] 2020-10-15 18:05:00 Mohini Liu [facility] URIC ACID 2020-10-15 18:05:00 Mohini Liu [facility] sity [facility] LIPASE 2020-10-15 18:05:00 Mandie Caldwell [facility] FERRITIN SERUM 2020-10-15 18:05:00 Mohnii Liu [facility] TROPONIN I 2020-10-15 18:05:00 Mandie Caldwell [facility] THYROID STIMULATING HORMONE 2020-10-15 18:05:[address] [facility] HEPATIC FUNCTION PANEL (70286) (ALB,T.PRO,BILI T,BU/BC,ALT,AST,ALK PHOS) 2020-10-15 18:05:[address] [facility] BASIC METABOLIC PANEL (NA, K, CL, CO2, GLUCOSE, BUN, CREATININE, CA) 2020-10-15 18:05:[address] [facility] LIPID PANEL (46662)(TOTAL CHOLESTEROL, TRIGLYCERIDES, HDL) 2020-10-15 18:05:[address] [facility] CBC WITH DIFF 2020-10-15 18:05:00 [facility] GLYCOS[facility]OGLOB[facility] (A1C) 2020-10-15 18:05:[address] [facility] N-TERMINAL PRO-BNP 2020-10-15 18:05:[address] [facility] HB ECG ROUTINE & RHYTHM STRIP 2020-10-15 17:50:[address] [facility] NOTICE OF PRIVACY PRACTICES 2020-10-15 17:23:54 Doctor Unassigned, Aragon [facility] Encounters Start Date/Time End Date/Time Encounter Type Admission Type Attending [facility] Facility Care Department Encounter ID Source 2022-02-28 00:00:00 2022-02-28 00:00:00 Outpatient AMBREEN_JANE TILLMAN TNCOLLETTE [facility] [id number] Remy [facility] Program 2021-09-04 16:26:00 2021-09-05 12:40:00 [id number] 2021-09-04 16:26:00 2021-09-05 12:40:00 [facility]..840.114 [id number] [id number] [id number] [facility] 2020-12-08 13:52:35 2020-12-08 14:22:35 [facility] 1..840.114 [id number] [id number] [id number] [facility] 2020-12-08 14:15:00 2020-12-08 14:15:00 Outpatient R LISA WILSON [facility] [id number] [facility] 2020-12-08 00:00:00 2020-12-08 00:00:00 Orders Only Doctor Unassigned, Aragon [facility] [id number] [id number] 4.2.7.2.686 [id number] [facility] 2020-10-20 00:00:00 2020-10-20 00:00:00 Patient Outreach Taisha Garcia [id number] [id number] 4.2.7.2.686 [id number] [facility] 2020-10-19 00:00:00 2020-10-19 00:00:00 Transition of Care Dorothy Lehman [id number] [id number] 4.2.7.2.686 [id number] [facility] 2020-10-15 11:32:00 2020-10-17 16:45:00 Hospital Encounter Mandie Caldwell, Mohini Fagan [facility] [id number] [id number] 4.2.7.2.686 [id number] [facility] 2020-10-15 11:32:00 2020-10-15 11:32:00 Emergency X [facility] E[facility] [id number] [facility] Results Test Description Test Time Test Comments Results Result Co mments Source [facility]01* Test Item Value Reference Range Interpretation Comme nts LIPASE (test code = 2684027831) 97 U/L 0-220 Lab Interpretation (test cod e = 16045-8) Normal [facility] [id number] 12:25:53* Test Item Value Reference Range Interpretation Comme nts WBC (test code = 6690-2) See_Comment [Automated messa ge] The system which generated this result transmitted reference range: 4.20 - 10.70 10*3/?L. The reference range was not used to interpret this result as normal/abnormal. RBC (test code = 789-8) See_Comment H [Automated messa ge] The system which generated this result transmitted reference range: 4.26 - 5.52 10*6/?L. The reference range was not used to interpret this result as normal/abnormal. HGB (test code = 718-7) 15.3 g/dL 12.2-16.4 HCT (test code = 4544-3) 46.8 % 38.4-49.3 MCV (test code = 787-2) 83.4 fL 81.7-95.6 MCH (test code = 785-6) 27.3 pg 26.1-32.7 MCHC (test code = 786-4) 32.7 g/dL 31.2-35.0 RDW-SD (test code = 28757-9) 39.4 fL 38.5-51.6 RDW-CV (test code = 788-0) 13.0 % 12.1-15.4 PLT (test code = 777-3) See_Comment [Automated messa ge] The system which generated this result transmitted reference range: 150 - 328 10*3/?L. The reference range was not used to interpret this result as normal/abnormal. MPV (test code = 15892-0) 9.8 fL 9.8-13.0 NRBC/100 WBC (test code = 3276299392) See_Comment [Automated [employer] ssage] The system which generated this result transmitted reference range: 0.0 - 10.0 /100 WBCs. The reference range was not used to interpret this result as normal/abnormal. NRBC x10^3 (test code = 8205622558) <0.01 See_Comment [Automated messa ge] The system which generated this result transmitted reference range: 10*3/?L. The reference range was not used to interpret this result as normal/abnormal. GRAN MAT (NEUT) % (test code = 770-8) 59.1 % IMM GRAN % (test code = 7546742007) 0.30 % LYMPH % (test code = 736-9) 30.4 % MONO % (test code = 5905-5) 7.6 % EOS % (test code = 713-8) 2.1 % BASO % (test code = 706-2) 0.5 % GRAN MAT x10^3(ANC) (test code = 1138713624) 3.74 10*3/uL 1.99-6.95 IMM GRAN x10^3 (test code = 5083480722) <0.03 0.00-0.06 LYMPH x10^3 (test code = 731-0) 1.92 10*3/uL 1.09-3.23 MONO x10^3 (test code = 742-7) 0.48 10*3/uL 0.36-1.02 EOS x10^3 (test code = 711-2) 0.13 10*3/uL 0.06-0.53 BASO x10^3 (test code = 704-7) 0.03 10*3/uL 0.01-0.09 Lab Interpretation (test code = 12838-4) [facility] ([facility])(TOTAL CHOLESTEROL, TRIGLYCERIDES, HDL)2021-09-05 03:49:26* Test Item Value Reference Range Interpretation Comme nts CHOL (test code = 2157485182) 224 mg/dL 120-200 H HDL (test code = 3964951905) 37 mg/dL >40 L HDLC RATIO (test code = 1982122083) See_Comment H [Automated Rev] The system which generated this result transmitted reference range: <=5.0. The reference range was not used to interpret this result as normal/abnormal. TRIG (test code = 1827479396) 153 mg/dL 30-170 LDL CHOL (test code = 54060-0) 156 mg/dL See_Comment [Automated [employer]] The system which generated this result transmitted reference range: <=160. The reference range was not used to interpret this result as normal/abnormal. VLDL (test code = 2611486981) 31 mg/dL 5-60 Lab Interpretation (test code = 23977-9) [facility]normal [facility] 03:03:36* Test Item Value Reference Range Interpretation Comme nts MAGNESIUM (test code = 7481743858) 2.0 mg/dL 1.7-2.4 Lab Interpretation (test cod e = 42469-7) Normal [facility]. METABOLIC PANEL (04125)2021-09-05 03:03:21* Test Item Value Reference Range Interpretation Comme nts NA (test code = 6988421199) 138 mmol/L 135-145 K (test code = 2549097930) 4.1 mmol/L 3.5-5.0 CL (test code = 7059115634) 102 mmol/L 98-108 CO2 TOTAL (test code = 3684036608) 24 mmol/L 23-31 AGAP (test code = 4666448705) 2-16 BUN (test code = 7678437775) 14 mg/dL 7-23 GLUCOSE (test code = 2031396915) 147 mg/dL 70-110 H CREATININE (test code = 5877140518) 0.71 mg/dL 0.60-1.25 TOTAL BILI (test code = 7588656460) 0.9 mg/dL 0.1-1.1 CALCIUM (test code = 0048056586) 9.2 mg/dL 8.6-10.6 T PROTEIN (test code = 7367974039) 7.8 g/dL 6.3-8.2 ALBUMIN (test code = 7410997231) 5.0 g/dL 3.5-5.0 ALK PHOS (test code = 2539849384) 93 U/L 34-122 ALTv (test code = 1742-6) 48 U/L 5-50 AST(SGOT) (test code = 1493881833) 45 U/L 13-40 H eGFR (test code = 2695913349) mL/min/1.73m2 SARWAT (test code = SARWAT) Association of Glomerular Filtration Rate (GFR) and Staging of Kidney Disease* + --+ --+ ------+| GFR (mL/min/1.73 m2) ?| With Kidney Damage ?| ?Without Kidney Damage+ --------+ --------+ +| ?>90 ?| ?Stage one ?| ? Normal ?+ ---+ ---+ -------+| ?60-89 ?| ?Stage two ?| ? Decreased GFR ? + --+ --+ ------+| ?30-59 ?| ?Stage three ?| ? Stage three ? + --+ --+ ------+| ?15-29 ?| ?Stage four ? | ? Stage four ?+ ---+ ---+ -------+| ?<15 (or dialysis) ? ?| ?Stage five ? | ? Stage five ?+ ---+ ---+ -------+ *Each stage assumes the associated GFR level has been in effect for at least three months. ?Stages 1 to 5, with or without kidney disease, indicate chronic kidney disease. Notes: Determination of stages one and two (with eGFR >59mL/min/1.73 m2) requires estimation of kidney damage for at least three months as defined by structural or functional abnormalities of the kidney, manifested by either:Pathological abnormalities or Markers of kidney damage (including abnormalities in the composition of the blood or urine or abnormalities in imaging tests). Lab Interpretation (test code = 06450-2) [facility]03:01* Test Item Value Reference Range Interpretation Comme nts LIPASE (test code = 9461567642) 103 U/L 0-220 Lab Interpretation (test cod e = 87890-4) [facility] WITH [id number] 00:11:48* Test Item Value Reference Range Interpretation Comme nts WBC (test code = 6690-2) See_Comment [Automated Rev] The system which generated this result transmitted reference range: 4.20 - 10.70 10*3/?L. The reference range was not used to interpret this result as normal/abnormal. RBC (test code = 789-8) See_Comment H [Automated Rev] The system which generated this result transmitted reference range: 4.26 - 5.52 10*6/?L. The reference range was not used to interpret this result as normal/abnormal. HGB (test code = 718-7) 17.5 g/dL 12.2-16.4 H HCT (test code = 4544-3) 53.1 % 38.4-49.3 H MCV (test code = 787-2) 83.1 fL 81.7-95.6 MCH (test code = 785-6) 27.4 pg 26.1-32.7 MCHC (test code = 786-4) 33.0 g/dL 31.2-35.0 RDW-SD (test code = 06649-6) 38.7 fL 38.5-51.6 RDW-CV (test code = 788-0) 12.9 % 12.1-15.4 PLT (test code = 777-3) See_Comment [Automated messa ge] The system which generated this result transmitted reference range: 150 - 328 10*3/?L. The reference range was not used to interpret this result as normal/abnormal. MPV (test code = 10712-7) 9.5 fL 9.8-13.0 L NRBC/100 WBC (test code = 8281812748) See_Comment [Automated [employer] ssage] The system which generated this result transmitted reference range: 0.0 - 10.0 /100 WBCs. The reference range was not used to interpret this result as normal/abnormal. NRBC x10^3 (test code = 8914697945) <0.01 See_Comment [Automated messa ge] The system which generated this result transmitted reference range: 10*3/?L. The reference range was not used to interpret this result as normal/abnormal. GRAN MAT (NEUT) % (test code = 770-8) 60.6 % IMM GRAN % (test code = 7676668791) 0.30 % LYMPH % (test code = 736-9) 31.3 % MONO % (test code = 5905-5) 6.0 % EOS % (test code = 713-8) 1.3 % BASO % (test code = 706-2) 0.5 % GRAN MAT x10^3(ANC) (test code = 4520912354) 3.87 10*3/uL 1.99-6.95 IMM GRAN x10^3 (test code = 6054760074) 0.02 10*3/uL 0.00-0.06 LYMPH x10^3 (test code = 731-0) 2.00 10*3/uL 1.09-3.23 MONO x10^3 (test code = 742-7) 0.38 10*3/uL 0.36-1.02 EOS x10^3 (test code = 711-2) 0.08 10*3/uL 0.06-0.53 BASO x10^3 (test code = 704-7) 0.03 10*3/uL 0.01-0.09 Lab Interpretation (test code = 22593-6) [facility] [id number] 15:20:54* Test Item Value Reference Range Interpretation Comme nts VIT D 25OH (test code = 33924-7) <13 25-80 L SARWAT (test code = SARWAT) Deficiency: <20 ng/mLInsufficiency: 20-24 ng/mLOptimal: 25-80 ng/mL Lab Interpretation (test code = 46998-0) [facility] [id number] 09:27:33* Test Item Value Reference Range Interpretation Comme nts NT-proBNP (test code = 2139589596) 75 pg/mL See_Comment [Automated message] The system which generated this result transmitted reference range: <=125. The reference range was not used to interpret this result as normal/abnormal. SARWAT (test code = SARWAT) Biotin has been reported to cause a negative bias, interpret results relative to patient's use of biotin. Lab Interpretation (test code = 29499-5) Normal [facility]COMP[facility] METABOLIC PANEL (93065)2020-10-17 09:23:31* Test Item Value Reference Range Interpretation Comme nts NA (test code = 0727704381) 139 mmol/L 135-145 K (test code = 0514734952) 3.6 mmol/L 3.5-5.0 CL (test code = 1090929587) 106 mmol/L 98-108 CO2 TOTAL (test code = 5057212913) 22 mmol/L 23-31 L AGAP (test code = 6763722092) 2-16 BUN (test code = 5317694653) 6 mg/dL 7-23 L GLUCOSE (test code = 6959359613) 98 mg/dL 70-110 CREATININE (test code = 1549811538) 0.67 mg/dL 0.60-1.25 TOTAL BILI (test code = 1686282189) 0.6 mg/dL 0.1-1.1 CALCIUM (test code = 7484074521) 8.8 mg/dL 8.6-10.6 T PROTEIN (test code = 9036930147) 7.1 g/dL 6.3-8.2 ALBUMIN (test code = 0250994833) 4.4 g/dL 3.5-5.0 ALK PHOS (test code = 3274157667) 65 U/L 34-122 ALTv (test code = 1742-6) 60 U/L 5-50 H AST(SGOT) (test code = 8570800198) 38 U/L 13-40 eGFR Calculation (Non-) (test code = 6012017087) mL/min/1.73m2 eGFR Calculation () (test code = 5880394842) mL/min/1.73m2 SARWAT (test code = SARWAT) Association of Glomerular Filtration Rate (GFR) and Staging of Kidney Disease* + --+ --+ ------+| GFR (mL/min/1.73 m2) ?| With Kidney Damage ?| ?Without Kidney Damage+ --------+ --------+ +| ?>90 ?| ?Stage one ?| ? Normal ?+ ---+ ---+ -------+| ?60-89 ?| ?Stage two ?| ? Decreased GFR ? + --+ --+ ------+| ?30-59 ?| ?Stage three ?| ? Stage three ? + --+ --+ ------+| ?15-29 ?| ?Stage four ? | ? Stage four ?+ ---+ ---+ -------+| ?<15 (or dialysis) ? ?| ?Stage five ? | ? Stage five ?+ ---+ ---+ -------+ *Each stage assumes the associated GFR level has been in effect for at least three months. ?Stages 1 to 5, with or without kidney disease, indicate chronic kidney disease. Notes: Determination of stages one and two (with eGFR >59mL/min/1.73 m2) requires estimation of kidney damage for at least three months as defined by structural or functional abnormalities of the kidney, manifested by either:Pathological abnormalities or Markers of kidney damage (including abnormalities in the composition of the blood or urine or abnormalities in imaging tests). Lab Interpretation (test code = 98346-9) [facility]MAG[facility]21-[facility] 09:23:31* Test Item Value Reference Range Interpretation Comme nts MAGNESIUM (test code = 0850940620) 1.9 mg/dL 1.7-2.4 Lab Interpretation (test cod e = 56777-2) Normal [facility]PHOS[facility]US2021-[facility]-15 09:23:11* Test Item Value Reference Range Interpretation Comme nts PHOSPHORUS (test code = 9994675182) 3.7 mg/dL 2.5-5.0 Lab Interpretation (test cod e = 75001-9) Normal [facility] CenterCBC WITH [id number] 09:03:29* Test Item Value Reference Range Interpretation Comme nts WBC (test code = 6690-2) See_Comment [Automated messa ge] The system which generated this result transmitted reference range: 4.20 - 10.70 10*3/?L. The reference range was not used to interpret this result as normal/abnormal. RBC (test code = 789-8) See_Comment H [Automated messa ge] The system which generated this result transmitted reference range: 4.26 - 5.52 10*6/?L. The reference range was not used to interpret this result as normal/abnormal. HGB (test code = 718-7) 15.9 g/dL 12.2-16.4 HCT (test code = 4544-3) 48.1 % 38.4-49.3 MCV (test code = 787-2) 83.8 fL 81.7-95.6 MCH (test code = 785-6) 27.7 pg 26.1-32.7 MCHC (test code = 786-4) 33.1 g/dL 31.2-35.0 RDW-SD (test code = 06821-1) 38.0 fL 38.5-51.6 L RDW-CV (test code = 788-0) 12.5 % 12.1-15.4 PLT (test code = 777-3) See_Comment [Automated messa ge] The system which generated this result transmitted reference range: 150 - 328 10*3/?L. The reference range was not used to interpret this result as normal/abnormal. MPV (test code = 36639-6) 9.6 fL 9.8-13.0 L NRBC/100 WBC (test code = 2474580352) See_Comment [Automated me ssage] The system which generated this result transmitted reference range: 0.0 - 10.0 /100 WBCs. The reference range was not used to interpret this result as normal/abnormal. NRBC x10^3 (test code = 5737211578) <0.01 See_Comment [Automated messa ge] The system which generated this result transmitted reference range: 10*3/?L. The reference range was not used to interpret this result as normal/abnormal. GRAN MAT (NEUT) % (test code = 770-8) 62.9 % IMM GRAN % (test code = 4810149458) 0.20 % LYMPH % (test code = 736-9) 28.6 % MONO % (test code = 5905-5) 6.3 % EOS % (test code = 713-8) 1.7 % BASO % (test code = 706-2) 0.3 % GRAN MAT x10^3(ANC) (test code = 3645261691) 3.67 10*3/uL 1.99-6.95 IMM GRAN x10^3 (test code = 5988273710) <0.03 0.00-0.06 LYMPH x10^3 (test code = 731-0) 1.67 10*3/uL 1.09-3.23 MONO x10^3 (test code = 742-7) 0.37 10*3/uL 0.36-1.02 EOS x10^3 (test code = 711-2) 0.10 10*3/uL 0.06-0.53 BASO x10^3 (test code = 704-7) <0.03 0.01-0.09 Lab Interpretation (test code = 96472-1) [facility]normal [facility] CenterVIT[facility]IN B12, [id number] 19:59:04* Test Item Value Reference Range Interpretation Comme nts VIT B12 (test code = 5340998234) 455 pg/mL 240-930 SARWAT (test code = SARWAT) Biotin has been reported to cause a positive bias, interpret results relative to patient's use of biotin. Lab Interpretation (test code = 55037-8) Normal [facility] CenterGLYCOSYLATED HEMOGLOBIN (A1C)2020-10-16 11:25:41* Test Item Value Reference Range Interpretation Comme nts HGB A1C (test code = 4548-4) 5.8 % 4.0-6.0 SARWAT (test code = SARWAT) %A1C (NGSP) Interpretation (ADA)4.8-5.6 ? ? Normal or (Non-Diabetic Range)5.7-6.4 ? ? Increased Risk (Pre-Diabetic)>6.5 ?Diabetes Indicated Lab Interpretation (test code = 12234-9) Normal [facility] CenterSEDIMENTATION [id number] 11:25:26* Test Item Value Reference Range Interpretation Comme nts ESR (test code = 5803348438) See_Comment H [Automated [employer]] The system which generated this result transmitted reference range: 0 - 10 mm/HR. The reference range was not used to interpret this result as normal/abnormal. Lab Interpretation (test code = 82915-3) [facility]normal [facility] CenterIRON [id number] 11:21:16* Test Item Value Reference Range Interpretation Comme nts IRON (test code = 4189473876) 101 ug/dL 50-160 TIBC (test code = 4441738282) 317 ug/dL 250-410 % FE SAT (test code = 8709086816) 32 % 20-50 Lab Interpretation (test cod e = 26058-1) Normal [facility] CenterPROTHROMBIN TIME / [id number] 11:13:35* Test Item Value Reference Range Interpretation Comme nts PROTIME PATIENT (test code = 5964-2) See_Comment [Automated Rev] The system which generated this result transmitted reference range: 12.0 - 14.7 Seconds. The reference range was not used to interpret this result as normal/abnormal. INR (test code = 6301-6) Normal INR <1.1; Warfarin Therapeutic range 2.0 to 3.0 or 2.5 to 3.5, depending upon the indications. Lab Interpretation (test code = 97177-8) Normal [facility] CenterCOM. METABOLIC PANEL (86423)2020-10-16 11:12:15* Test Item Value Reference Range Interpretation Comme nts NA (test code = 2415977869) 137 mmol/L 135-145 K (test code = 7499531953) 4.5 mmol/L 3.5-5.0 CL (test code = 5885096121) 105 mmol/L 98-108 CO2 TOTAL (test code = 6477325269) 23 mmol/L 23-31 AGAP (test code = 2839981231) 2-16 BUN (test code = 9897658311) 6 mg/dL 7-23 L GLUCOSE (test code = 1587092556) 111 mg/dL 70-110 H CREATININE (test code = 0075513798) 0.64 mg/dL 0.60-1.25 TOTAL BILI (test code = 9361233177) 0.7 mg/dL 0.1-1.1 CALCIUM (test code = 1671363894) 8.7 mg/dL 8.6-10.6 T PROTEIN (test code = 1830825774) 7.0 g/dL 6.3-8.2 ALBUMIN (test code = 2330249631) 4.4 g/dL 3.5-5.0 ALK PHOS (test code = 0908191277) 59 U/L 34-122 ALTv (test code = 1742-6) 68 U/L 5-50 H AST(SGOT) (test code = 9184594128) 58 U/L 13-40 H eGFR Calculation (Non-) (test code = 0159522893) mL/min/1.73m2 eGFR Calculation () (test code = 2883197911) mL/min/1.73m2 SARWAT (test code = SARWAT) Association of Glomerular Filtration Rate (GFR) and Staging of Kidney Disease* + --+ --+ ------+| GFR (mL/min/1.73 m2) ?| With Kidney Damage ?| ?Without Kidney Damage+ --------+ --------+ +| ?>90 ?| ?Stage one ?| ? Normal ?+ ---+ ---+ -------+| ?60-89 ?| ?Stage two ?| ? Decreased GFR ? + --+ --+ ------+| ?30-59 ?| ?Stage three ?| ? Stage three ? + --+ --+ ------+| ?15-29 ?| ?Stage four ? | ? Stage four ?+ ---+ ---+ -------+| ?<15 (or dialysis) ? ?| ?Stage five ? | ? Stage five ?+ ---+ ---+ -------+ *Each stage assumes the associated GFR level has been in effect for at least three months. ?Stages 1 to 5, with or without kidney disease, indicate chronic kidney disease. Notes: Determination of stages one and two (with eGFR >59mL/min/1.73 m2) requires estimation of kidney damage for at least three months as defined by structural or functional abnormalities of the kidney, manifested by either:Pathological abnormalities or Markers of kidney damage (including abnormalities in the composition of the blood or urine or abnormalities in imaging tests). Lab Interpretation (test code = 88627-5) Abnormal [facility] with [id number] 11:08:17* Test Item Value Reference Range Interpretation Comme nts WBC (test code = 6690-2) See_Comment [CRV] The system which generated this result transmitted reference range: 4.20 - 10.70 10*3/?L. The reference range was not used to interpret this result as normal/abnormal. RBC (test code = 789-8) See_Comment H [CRV] The system which generated this result transmitted reference range: 4.26 - 5.52 10*6/?L. The reference range was not used to interpret this result as normal/abnormal. HGB (test code = 718-7) 16.5 g/dL 12.2-16.4 H HCT (test code = 4544-3) 48.6 % 38.4-49.3 MCV (test code = 787-2) 82.7 fL 81.7-95.6 MCH (test code = 785-6) 28.1 pg 26.1-32.7 MCHC (test code = 786-4) 34.0 g/dL 31.2-35.0 RDW-SD (test code = 49895-0) 38.3 fL 38.5-51.6 L RDW-CV (test code = 788-0) 12.8 % 12.1-15.4 PLT (test code = 777-3) See_Comment [CRV] The system which generated this result transmitted reference range: 150 - 328 10*3/?L. The reference range was not used to interpret this result as normal/abnormal. MPV (test code = 04057-6) 9.7 fL 9.8-13.0 L NRBC/100 WBC (test code = 1549906915) See_Comment [Automated me ssage] The system which generated this result transmitted reference range: 0.0 - 10.0 /100 WBCs. The reference range was not used to interpret this result as normal/abnormal. NRBC x10^3 (test code = 0363483926) <0.01 See_Comment [Automated messa ge] The system which generated this result transmitted reference range: 10*3/?L. The reference range was not used to interpret this result as normal/abnormal. GRAN MAT (NEUT) % (test code = 770-8) 58.0 % IMM GRAN % (test code = 8820887616) 0.30 % LYMPH % (test code = 736-9) 31.3 % MONO % (test code = 5905-5) 7.6 % EOS % (test code = 713-8) 2.5 % BASO % (test code = 706-2) 0.3 % GRAN MAT x10^3(ANC) (test code = 0881869859) 3.43 10*3/uL 1.99-6.95 IMM GRAN x10^3 (test code = 3471167897) <0.03 0.00-0.06 LYMPH x10^3 (test code = 731-0) 1.85 10*3/uL 1.09-3.23 MONO x10^3 (test code = 742-7) 0.45 10*3/uL 0.36-1.02 EOS x10^3 (test code = 711-2) 0.15 10*3/uL 0.06-0.53 BASO x10^3 (test code = 704-7) <0.03 0.01-0.09 Lab Interpretation (test code = 07345-6) Abnormal [facility] [id number] 11:07:16* Test Item Value Reference Range Interpretation Comme nts TROPONIN I (test code = 1188710507) <0.012 See_Comment [Automated message] The system which generated this result transmitted reference range: <=0.034 ng/mL. The reference range was not used to interpret this result as normal/abnormal. SARWAT (test code = SARWAT) Equal or Less than 0.034 ng/ml---Normal ?Note: Cardiac troponin begins to rise 3-4 hours after the onset of ischemia. Repeat in 4-6 hours if the sample was drawn within 3-4 hours of the onset of the symptom and found normal. Between 0.035 and 0.120 ng/mL--- Borderline. Questionable myocardial injury or necrosis ? ?Note: Serial measurement may be necessary to confirm or exclude the diagnosis of myocardial injury or necrosis; Clinical correlation (symptoms, EKGs, imaging studies, and others) required; Repeat in 4-6 hours if clinically indicated. ? Equal or Higher than 0.121 ng/mL---Abnormal. Myocardial Injury or Necrosis Likely ? Biotin has been reported to cause a negative bias, interpret results relative to patient's use of biotin. ? Lab Interpretation (test code = 93815-0) Normal [facility]AL [id number] 11:04:13* Test Item Value Reference Range Interpretation Comme nts NT-proBNP (test code = 4585383075) 26 pg/mL See_Comment [Automated message] The system which generated this result transmitted reference range: <=125. The reference range was not used to interpret this result as normal/abnormal. SARWAT (test code = SARWAT) Biotin has been reported to cause a negative bias, interpret results relative to patient's use of biotin. Lab Interpretation (test code = 09221-9) Normal [facility]MAGN[facility]UM2021-[facility]-14 10:56:56* Test Item Value Reference Range Interpretation Comme nts MAGNESIUM (test code = 1979511338) 2.0 mg/dL 1.7-2.4 Lab Interpretation (test cod e = 92039-3) Normal [facility]PHOS[facility]US2021-[facility]-14 10:56:36* Test Item Value Reference Range Interpretation Comme nts PHOSPHORUS (test code = 6221863778) 3.5 mg/dL 2.5-5.0 Lab Interpretation (test cod e = 68876-8) Normal [facility] CenterLIPASE2021-[facility]-14 10:56:35* Test Item Value Reference Range Interpretation Comme nts LIPASE (test code = 6098756460) 534 U/L 0-220 H Lab Interpretation (test cod e = 55415-5) [facility]normal [facility] CenterBILI UNCONJUGATED/BILI [id number] 10:56:15* Test Item Value Reference Range Interpretation Comme nts BILI CONJ (test code = 7257931163) 0.0 mg/dL 0.0-0.3 BILI UNCON (test code = 9875351275) 0.5 mg/dL 0.1-1.1 Lab Interpretation (test cod e = 98339-4) Normal [facility] CenterCREATINE [id number] 07:52:58* Test Item Value Reference Range Interpretation Comme nts CK (test code = 4683575432) 76 U/L 33-194 Lab Interpretation (test cod e = 61107-7) Normal [facility] CenterFERRITIN [id number] 07:52:58* Test Item Value Reference Range Interpretation Comme nts FERRITIN (test code = 3734781344) 163.0 ng/mL 18.0-464.0 SARWAT (test code = SARWAT) Biotin has been reported to cause a negative bias, interpret results relative to patient's use of biotin. Lab Interpretation (test code = 31549-7) Normal [facility] CenterTHYROID STIMULATING [id number] 07:48:38 * Test Item Value Reference Range Interpretation Comme nts TSH (test code = 9626259370) See_Comment [Automated [employer] ge] The system which generated this result transmitted reference range: 0.45 - 4.70 mIU/L. The reference range was not used to interpret this result as normal/abnormal. Lab Interpretation (test code = 90125-3) Normal [facility]N-TERMINAL [id number] 07:27:15* Test Item Value Reference Range Interpretation Comme nts NT-proBNP (test code = 9874601131) 16 pg/mL See_Comment [Automated message] The system which generated this result transmitted reference range: <=125. The reference range was not used to interpret this result as normal/abnormal. SARWAT (test code = SARWAT) Biotin has been reported to cause a negative bias, interpret results relative to patient's use of biotin. Lab Interpretation (test code = 31193-2) Normal [facility] CenterURIC [id number] 07:18:04* Test Item Value Reference Range Interpretation Comme nts URIC ACID (test code = 2669779547) 5.9 mg/dL 3.6-8.0 Lab Interpretation (test cod e = 04169-5) Normal [facility] CenterLIPID PANEL (05504)(TOTAL CHOLESTEROL, TRIGLYCERIDES, HDL)2020-10-16 07:17:19* Test Item Value Reference Range Interpretation Comme nts CHOL (test code = 5201717011) 227 mg/dL 120-200 H HDL (test code = 8302010532) 30 mg/dL >40 L HDLC RATIO (test code = 1438662847) See_Comment H [Automated Rev] The system which generated this result transmitted reference range: <=5.0. The reference range was not used to interpret this result as normal/abnormal. TRIG (test code = 0745303442) 237 mg/dL 30-170 H LDL CHOL (test code = 22159-1) 150 mg/dL See_Comment [Automated Rev] The system which generated this result transmitted reference range: <=160. The reference range was not used to interpret this result as normal/abnormal. VLDL (test code = 7099118323) 47 mg/dL 5-60 Lab Interpretation (test code = 03604-9) Abnormal [facility] CenterUS GALL [id number] 23:18:23Elongated gallbladder measuring up to 9.8 cm longitudinally. No sludge,cholelithiasis, or acute cholecystitis. Findings may be seen with fastingRecommend correlation with physical findings and laboratory results. Hepatic steatosis. Preliminary Report Dictated by Resident: Josef Raymond I, Janet Robles MD., have reviewed this study and agree with theabove report.EXAM: US GALL BLADDER HISTORY: 30 years-old Male with r/o cholecystitis . Right upper quadrantpain and vomiting for 4 days. TECHNIQUE: Limited abdominal ultrasound was performed with focus on thegallbladder. The main portal vein was evaluated with color Doppler.[employer] images were obtained for the record. COMPARISON: None FINDINGS: PANCREAS:The pancreas is unable to be visualized due to shadowing from bowel gas. LIVER:A limited evaluation of the liver was performed on this focusedexamination of the gallbladder.Length: The liver is normal in size, and measures approximately 14.6 cm inthe craniocaudal dimension.Parenchyma: The liver parenchyma exhibits increased hepatic echogenicity.Portal vein: Hepatopetal flow is present in the main portal vein.MPV diameter: The main portal vein measures 1.2 cm in the AP dimension.. GALLBLADDER:The gallbladder is physiologically distended and elongated, measuring 9.8cm in length. No cholelithiasis is seen.The gallbladder wall thickness is normal, and measures 0.1 cm.No pericholecystic fluid is visualized. Welch's sign could not beaccurately assessed due to pain medication. BILE DUCTS:No intra- or extrahepatic biliary dilatation is visualized.The common bile duct diameter is normal, and measures 0.5 cm. [facility], Radiant Results Inft User - 10/15/2020 5:19 PM CSTEXAM: USGALL BLADDERHISTORY: 30 years-old Male with r/o cholecystitis . Right upper quadrantpain and vomiting for 4 days.TECHNIQUE: Limited abdominal ultrasound was performed with focus on thegallbladder. The main portal vein was evaluated with color Doppler.[employer] images were obtained for the recor d.COMPARISON: NoneFINDINGS: PANCREAS:The pancreas is unable to be visualized due to shadowing from bowel gas.LIVER: A limited evaluation of the liver was performed on this focusedexamination of the gallbladder.Length: The liver is normal in size, and measures approximately 14.6 cm inthe craniocaudal dimension.Parenchyma: The liver parenchyma exhibits increased hepatic echogenicity.Portal vein: Hepatopetal flow is present in the main portal vein.MPV diameter: The main portal vein measures 1.2 cmin the AP dimension..GALLBLADDER:The gallbladder is physiologically distended and elongated, measuring 9.8cm in length. No cholelithiasis is seen.The gallbladder wall thickness is normal, and measures 0.1 cm.No pericholecystic fluid is visualized. Welch's sign could not beaccurately assessed due to pain medication. BILE DUCTS:No intra- or extrahepatic biliary dilatation is visualized.The common bile duct diameter is normal, and measures 0.5 cm.IMPRESSIONElongated gallbladder measuring up to 9.8 cm longitudinally. No sludge,cholelithiasis, or acute cholecystitis. Findings may be seen with fast ingRecommend correlation with physical findings and laboratory results.Hepatic steatosis.Preliminary Report Dictated by Resident: Janet Lemus MD., have reviewed this study and agree with theabove report. [facility] CenterCT ABDOMEN PELVIS W [id number] 22:47:53Circumferential urinary bladder wall thickening and enhancement of theprostatic urethra. Recommend correlation with physical and laboratoryfindings is recommended to rule out cystitis/urethritis. Mesorectal adenopathy without rectal wall thickening. Recommend correlationwith physical examination aswell as proctoscopy. A 1.7 x 1.2 cm lymph node versus soft tissue nodule in mesenteric root,indeterminate. Mild hepatic steatosis. Preliminary Report Dictated by Resident: Janet David MD., have reviewed this study and agree with theabove report.CT ABDOMEN PELVIS W CONTRAST HISTORY: 30 years-old; Male; Indication for study: Abdominalabscess/infection suspected COMPARISON: N one TECHNIQUE AND FINDINGS: Contiguous axial imaging from the level of the lungbases through the proximal thighs was performed after intravenous contrastadministration. Coronal and sagittal reconstructions were obtained. ? FINDINGS: LOWER THORAX: The lung bases are clear. LIVER: Punctate hypodensities, too small to characterize likely representcysts. ?Normal contour. Diffuse hepatic hypoattenuation. GALLBLADDER AND BILIARY TREE: No intra or extrahepatic biliary ductaldilation. Elongated gallbladder. No gallbladder wall thickening. Noradiopaque stones are identified. No pericholecystic fat stranding. SPLEEN: No splenomegaly, measuring 12.0 cm, in the craniocaudal dimension. PANCREAS: No ductal dilatation or masses ADRENAL GLANDS: No adrenal lesions. KIDNEYS: No hydronephrosis, stones, or masses. Homogeneous and symmetricalenhancement. GI TRACT: No dilation or bowel wall thickening. ?The appendix normal(2:99-110). PERITONEUM AND RETROPERITONEUM: No free air or fluid collection. LYMPH NODES: A 1.7 x 1.2 cm soft tissue in the mesenteric root just below the thirdportion of duodenum (2:69), may represent a lymph node. Multiple enlargedmesorectal lymph nodes measuring up to 0.7 cm. A small lateral pelvic walllymph node measuring 0.7 cm.. PELVIS/BLADDER: Bladder is partially distended with circumferential wallthickening out of proportion for the degree of distention. Abnormalenhancement of the prostate urethra is noted. VESSELS: Unremarkable BONES AND SOFT TISSUES: No suspicious lytic or sclerotic bony lesions. [facility], Radiant Results Inft User - 10/15/2020 4:49 PM CSTCT ABDOMEN PELVIS W CONTRASTHISTORY: 30 years-old; Male; Indication for study: Abdominalabscess/infection suspected COMPARISON: NoneTECHNIQUE AND FINDINGS: Contiguous axial imaging from the level of the lungbases through the proximal thighs was performed after intravenous contrastadministration. Coronal and sagittal reconstructions were obtained. FINDINGS:LOWER THORAX: The lung bases are clear.LIVER: Punctate hypodensities, too small to characterize likely representcysts. Normal contour. Diffuse hepatic hypoattenuation.GALLBLADDER AND BILIARY TREE: No intra or extrahepatic biliary ductaldilation. Elongated g allbladder. No gallbladder wall thickening. Noradiopaque stones are identified. No pericholecystic fat stranding. SPLEEN: No splenomegaly, measuring 12.0 cm, in the craniocaudal dimension.PANCREAS: No ductal dilatation or massesADRENAL GLANDS: No adrenal lesions.KIDNEYS: No hydronephrosis, stones, or masses. Homogeneous and symmetricalenhancement. GI TRACT: No dilation or bowel wall thickening. The appendix normal(2:99-110).PERITONEUM AND RETROPERITONEUM: No free air or fluid collection.LYMPH NODES: A 1.7 x 1.2 cm soft tissue in the mesenteric root just below the thirdportion of duodenum (2:69), may represent a lymph node. Multiple enlargedmesorectal lymph nodes measuring up to 0.7 cm. A small lateral pelvic walllymph node measuring 0.7 cm..PELVIS/BLADDER: Bladder is partially distended with circumferential wallthickening out of proportion for the degree of distention. Abnormalenhancement of the prostate urethra is noted.VESSELS: UnremarkableBONES AND SOFT TISSUES: No suspicious lyticor sclerotic bony lesions.IMPRESSIONCircumferential urinary bladder wall thickening and enhancementof theprostatic urethra. Recommend correlation with physical and laboratoryfindings is recommended to rule out cystitis/urethritis. Mesorectal adenopathy without rectal wall thickening. Recommend correlationwith physical examination as well as proctoscopy.A 1.7 x 1.2 cm lymph node versus soft tissue nodule in mesenteric root,indeterminate.Mild hepatic steatosis. Preliminary Report Dictated by Resident: John Harrison, Janet Khan MD., have reviewed this study and agree with theabove report.[facility] ([facility] NOW RAPID TESTING)2020-10-15 20:37:17* Test Item Value Reference Range Interpretation Comme nts SARS-CoV-2 Rapid ID NOW (test code = 45637-0) Not Detected Not Detected SARWAT (test code = SARWAT) ID NOW COVID-19 As say is an isothermal nucleic acid amplification test intended for the qualitative detection of nucleic acid from SARS-CoV-2 viral RNA in nasopharyngeal (STUDIO ENGINEER) specimens. It is used under Emergency Use Authorization (EUA) by FDA. The limit of detection (LOD) of the assay is 125 Genome Equivalents/mL. A positive result is indicative of the presence of SARS-CoV-2 RNA. ?Clinical correlation with patient history and other diagnostic information is necessary to determine patient infection status. A negative (Not Detected) result does not preclude SARS-CoV-2 infection. In patients with clinical symptoms and other tests that are consistent with SARS-CoV-2 infection, negative results should be treated as presumptive negative and a new specimen should be tested with alternative PCR molecular test. Invalid: Please collect a new specimen for repeat patient testing if clinically indicated. Lab Interpretation (test code = 59317-9) Normal [facility] CenterUrinalysis2021-03-13 20:33:28* Test Item Value Reference Range Interpretation Comme nts APPEARANCE (test code = 3652836420) Clear Clear COLOR (test code = 6128345470) Straw Yellow A PH (test code = 1811132572) 4.8-8.0 SP GRAVITY (test code = 7782227688) 1.003-1.030 GLU U QUAL (test code = 8720420869) 50 mg/dL Normal A BLOOD (test code = 1785617505) Negative Negative KETONES (test code = 5380775548) 5 mg/dL Negative A PROTEIN (test code = 2887-8) Negative Negative UROBILIN (test code = 5038502785) Normal Normal BILIRUBIN (test code = 2819908881) Negative Negative NITRITE (test code = 3173473369) Negative Negative LEUK ASHLEY (test code = 3394562292) Negative Negative RBC/HPF (test code = 1369949595) See_Comment [Automated Rev] The system which generated this result transmitted reference range: 0 - 3 HPF. The reference range was not used to interpret this result as normal/abnormal. WBC/HPF (test code = 6165955649) See_Comment [Automated Rev] The system which generated this result transmitted reference range: 0 - 5 HPF. The reference range was not used to interpret this result as normal/abnormal. BACTERIA (test code = 7337110087) Negative Negative SQ EPITH (test code = 0991295678) <1 HPF Lab Interpretation (test code = 86038-8) Abnormal [facility] CenterTroponin [id number] 19:04:14* Test Item Value Reference Range Interpretation Comme nts TROPONIN I (test code = 9199888997) <0.012 See_Comment [Automated message] The system which generated this result transmitted reference range: <=0.034 ng/mL. The reference range was not used to interpret this result as normal/abnormal. SARWAT (test code = SARWAT) Equal or Less than 0.034 ng/ml---Normal ?Note: Cardiac troponin begins to rise 3-4 hours after the onset of ischemia. Repeat in 4-6 hours if the sample was drawn within 3-4 hours of the onset of the symptom and found normal. Between 0.035 and 0.120 ng/mL--- Borderline. Questionable myocardial injury or necrosis ? ?Note: Serial measurement may be necessary to confirm or exclude the diagnosis of myocardial injury or necrosis; Clinical correlation (symptoms, EKGs, imaging studies, and others) required; Repeat in 4-6 hours if clinically indicated. ? Equal or Higher than 0.121 ng/mL---Abnormal. Myocardial Injury or Necrosis Likely ? Biotin has been reported to cause a negative bias, interpret results relative to patient's use of biotin. ? Lab Interpretation (test code = 81849-4) Normal [facility] CenterCB with [id number] 18:58:02* Test Item Value Reference Range Interpretation Comme nts WBC (test code = 6690-2) See_Comment [Automated messa ge] The system which generated this result transmitted reference range: 4.20 - 10.70 10*3/?L. The reference range was not used to interpret this result as normal/abnormal. RBC (test code = 789-8) See_Comment H [Automated messa ge] The system which generated this result transmitted reference range: 4.26 - 5.52 10*6/?L. The reference range was not used to interpret this result as normal/abnormal. HGB (test code = 718-7) 18.2 g/dL 12.2-16.4 H HCT (test code = 4544-3) 54.0 % 38.4-49.3 H MCV (test code = 787-2) 83.3 fL 81.7-95.6 MCH (test code = 785-6) 28.1 pg 26.1-32.7 MCHC (test code = 786-4) 33.7 g/dL 31.2-35.0 RDW-SD (test code = 99805-4) 38.8 fL 38.5-51.6 RDW-CV (test code = 788-0) 12.9 % 12.1-15.4 PLT (test code = 777-3) See_Comment [Automated [employer] ge] The system which generated this result transmitted reference range: 150 - 328 10*3/?L. The reference range was not used to interpret this result as normal/abnormal. MPV (test code = 63802-5) 9.5 fL 9.8-13.0 L NRBC/100 WBC (test code = 9323931230) See_Comment [Automated [employer] ssage] The system which generated this result transmitted reference range: 0.0 - 10.0 /100 WBCs. The reference range was not used to interpret this result as normal/abnormal. NRBC x10^3 (test code = 8027056943) <0.01 See_Comment [Automated messa ge] The system which generated this result transmitted reference range: 10*3/?L. The reference range was not used to interpret this result as normal/abnormal. GRAN MAT (NEUT) % (test code = 770-8) 63.1 % IMM GRAN % (test code = 7609023863) 0.30 % LYMPH % (test code = 736-9) 26.9 % MONO % (test code = 5905-5) 6.8 % EOS % (test code = 713-8) 2.4 % BASO % (test code = 706-2) 0.5 % GRAN MAT x10^3(ANC) (test code = 4553613118) 3.74 10*3/uL 1.99-6.95 IMM GRAN x10^3 (test code = 8693699246) <0.03 0.00-0.06 LYMPH x10^3 (test code = 731-0) 1.59 10*3/uL 1.09-3.23 MONO x10^3 (test code = 742-7) 0.40 10*3/uL 0.36-1.02 EOS x10^3 (test code = 711-2) 0.14 10*3/uL 0.06-0.53 BASO x10^3 (test code = 704-7) 0.03 10*3/uL 0.01-0.09 Lab Interpretation (test code = 14080-9) Abnormal [facility] CenterHepatic Function Panel (ALB, T.PRO, BILI T, BU/BC, ALT, AST, ALK PHOS)2020-10-15 18:52:31* Test Item Value Reference Range Interpretation Comme nts TOTAL BILI (test code = 1250971014) 0.7 mg/dL 0.1-1.1 BILI UNCON (test code = 4854248758) 0.6 mg/dL 0.1-1.1 BILI CONJ (test code = 8324402056) 0.0 mg/dL 0.0-0.3 T PROTEIN (test code = 2082300777) 8.5 g/dL 6.3-8.2 H ALBUMIN (test code = 9694170027) 5.1 g/dL 3.5-5.0 H ALK PHOS (test code = 0128791618) 84 U/L 34-122 ALTv (test code = 1742-6) 71 U/L 5-50 H AST(SGOT) (test code = 7836867916) 52 U/L 13-40 H Lab Interpretation (test cod e = 17084-0) Abnormal [facility] CenterBasi Metabolic Panel (NA, K, CL, CO2, GLUCOSE, BUN, CREATININE, CA)2020-10-15 18:52:30* Test Item Value Reference Range Interpretation Comme nts NA (test code = 4197458125) 140 mmol/L 135-145 K (test code = 1004830082) 3.9 mmol/L 3.5-5.0 CL (test code = 7698273966) 101 mmol/L 98-108 CO2 TOTAL (test code = 9823315837) 26 mmol/L 23-31 AGAP (test code = 3525649630) 2-16 BUN (test code = 5463044309) 7 mg/dL 7-23 GLUCOSE (test code = 9097078303) 118 mg/dL 70-110 H CREATININE (test code = 4063304994) 0.71 mg/dL 0.60-1.25 CALCIUM (test code = 7978132287) 9.3 mg/dL 8.6-10.6 eGFR Calculation (Non-) (test code = 9737110553) mL/min/1.73m2 eGFR Calculation () (test code = 8375910931) mL/min/1.73m2 SARWAT (test code = SARWAT) Association of Glomerular Filtration Rate (GFR) and Staging of Kidney Disease* + --+ --+ ------+| GFR (mL/min/1.73 m2) ?| With Kidney Damage ?| ?Without Kidney Damage+ --------+ --------+ +| ?>90 ?| ?Stage one ?| ? Normal ?+ ---+ ---+ -------+| ?60-89 ?| ?Stage two ?| ? Decreased GFR ? + --+ --+ ------+| ?30-59 ?| ?Stage three ?| ? Stage three ? + --+ --+ ------+| ?15-29 ?| ?Stage four ? | ? Stage four ?+ ---+ ---+ -------+| ?<15 (or dialysis) ? ?| ?Stage five ? | ? Stage five ?+ ---+ ---+ -------+ *Each stage assumes the associated GFR level has been in effect for at least three months. ?Stages 1 to 5, with or without kidney disease, indicate chronic kidney disease. Notes: Determination of stages one and two (with eGFR >59mL/min/1.73 m2) requires estimation of kidney damage for at least three months as defined by structural or functional abnormalities of the kidney, manifested by either:Pathological abnormalities or Markers of kidney damage (including abnormalities in the composition of the blood or urine or abnormalities in imaging tests). Lab Interpretation (test code = 91527-1) Abnormal [facility] CenterLipase [id number] 18:52:30* Test Item Value Reference Range Interpretation Comme nts LIPASE (test code = 1202184495) 735 U/L 0-220 H Lab Interpretation (test cod e = 74765-9) Abnormal [facility]"
[2023-08-26 21:55] LABS: Specific Gravity 1.028 (1.005-1.030); Urine Bacteria None Seen /HPF (<20); Urine Bilirubin NEGATIVE (Negative); Urine Blood Negative (Negative); Urine Clarity Turbid (Clear); Urine Color Yellow (Yellow); Urine Crystals Unidentified Few /HPF (None Seen); Urine Glucose 4+ (Over) (Negative); Urine Mucus 3+ /HPF (None Seen); Urine Protein 2+ (Negative); Urine RBC <5 /HPF (None Seen); Urine Urobilinogen Normal (Normal)
[2023-08-26 23:01] LABS: Absolute Lymphocytes (CBC) 1.3 K/uL (0.7-4.9); Hematocrit 53.2 % (39.6-49.0); Lymphocytes % 14.4 % (15.3-44.8); MCV 82.4 fL (80-100); MPV 7.9 fL (7.6-11.3); Platelets 274 thou/uL (152-406); RBC Red Blood Cell Count 6.46 M/uL (4.33-5.43)
[2023-08-26 23:02] LABS: Albumin 4.4 g/dL (3.4-5.0); Bilirubin Total 0.7 mg/dL (0.2-1.0); Potassium 3.5 mEq/L (3.5-5.1); Protein, Total 8.1 g/dL (6.4-8.2)
--- NOTE | 2023-08-27 00:02 | ER ---
Nurse's Notes [facility] Name: Alfonso Weldon Age: 32 yrs Sex: Male : 1990 Arrival Date: 08/26/2023 Time: 21:19 Bed 7 Private MD: Diagnosis: Upper abdominal pain, unspecified Presentation: 08/26 21:25 Chief complaint: Patient states: ABD PAIN FOR YEARS. N/V. GOTTEN WORSE OF THE AST 2 jj7 DAYS. Coronavirus screen: At this time, the client does not indicate any symptoms associated with coronavirus-19. Ebola Screen: No symptoms or risks identified at this time. Initial Sepsis Screen: Does the patient meet any 2 criteria? No. Patient's initial sepsis screen is negative. Does the patient have a suspected source of infection? No. Patient's initial sepsis screen is negative. Risk Assessment: Do you want to hurt yourself or someone else? Patient reports no desire to harm self or others. 21:25 Method Of Arrival: Ambulatory j7 21:25 Acuity: YONATAN 3 jj7 22:40 Onset of symptoms was August 05, 2022. jw7 Triage Assessment: 21:29 General: Appears in no apparent distress. comfortable, Behavior is calm, cooperative, jj7 appropriate for age. Pain: Denies pain. GI: Reports nausea, vomiting. Historical: - Allergies: 21:29 No Known Allergies; jj7 - PMHx: 21:29 None; jj7 - PSHx: 21:29 HERNIA REPAIR; jj7 - Immunization history:: Adult Immunizations not immunized, Flu vaccine is not up to date. . - Social history:: Smoking status: Patient reports the use of cigarette tobacco products, denies chronic smoking, but will smoke occasionally, Patient/guardian denies using alcohol, street drugs. Screenin:31 [facility] ED Fall Risk Assessment (Adult) History of falling in the last 3 months, jj7 including since admission No falls in past 3 months (0 pts) Confusion or Disorientation No (0 pts) Intoxicated or Sedated No (0 pts) Impaired Gait No (0 pts) Mobility Assist Device Used No (0 pt) Altered Elimination No (0 pt) Score/Fall Risk Level 0 - 2 = Low Risk Oriented to surroundings, Maintained a safe environment, Educated pt \T\ family on fall prevention, incl call for assistance when getting out of bed. Abuse screen: Denies threats or abuse. Nutritional screening: No deficits noted. Tuberculosis screening: No symptoms or risk factors identified. Assessment: 21:30 General: See triage assessment. jw7 22:39 Reassessment: Patient appears in no apparent distress at this time. No changes from [facility] previously documented assessment. Patient and/or family updated on plan of care and expected duration. Pain level reassessed. Patient is alert, oriented x 3, equal unlabored respirations, skin warm/dry/pink. Vital Signs: 21:25 BP 159 / 101; Pulse 76; Resp 18; Temp 98.1; Weight 81.65 kg; Height 5 ft. 5 in. ; Pain j7 0/10; 22:40 BP 156 / 98; Pulse 78; Resp 18 S; Pulse Ox 95% on R/A; jw 23:25 BP 151 / 102; Pulse 73; Resp 17; Pulse Ox 99% ; 7 08/27 00:13 BP 145 / 98; Pulse 71; Resp 17; Pulse Ox 99% ; Pain 0/10; j7 08/26 21:25 Body Mass Index 29.95 (81.65 kg, 165.1 cm) 7 08/26 21:25 Pain Scale: Adult j7 08/27 00:13 Pain Scale: Adult j7 ED Course: 08/26 21:21 Patient arrived in ED. jj6 21:23 Day Barker FNP-C is [facility]. kb 21:23 Kirk Wyman MD is Attending Physician. kb 21:29 Triage completed. jj7 21:29 Antipyretic given from triage as ordered by the ER provider. Arm band placed on. jj7 21:31 Patient has correct armband on for positive identification. jj7 21:31 No provider procedures requiring assistance completed. jj7 21:46 Urinalysis w/ reflexes Sent. pf1 22:19 Bruce Schultz, RN is Primary Nurse. bp 22:39 Initial lab(s) drawn, by me, sent to lab. Inserted saline lock: 20 gauge in right 7 antecubital area, using aseptic technique. Blood collected. 23:36 CT Abd/Pelvis - IV Contrast Only In Process Unspecified. EDMS 08/27 00:13 IV discontinued, intact, bleeding controlled, No redness/swelling at site. Pressure jj7 dressing applied. Administered Medications: 08/26 22:39 Drug: NS 0.9% IV 1000 ml IV at 1 bolus Per protocol; 1000 mL bolus Route: IV; Rate: 1 jw7 bolus; Site: right antecubital; 23:40 Follow up: IV Status: Completed infusion jj7 22:39 Drug: Famotidine IVP 20 mg IVP once; dilute with 10 mL 0.9% NaCl; give over 2 minutes jw7 Route: IVP; Site: right antecubital; 08/27 00:16 Follow up: Response: Marked relief of symptoms jj7 08/26 22:39 Drug: Ondansetron IVP 4 mg IVP once; over 2 minutes Route: IVP; Site: right antecubital;jw7 08/27 00:16 Follow up: Response: Marked relief of symptoms jj7 Medication: 00:13 VIS not applicable for this client. jj7 Outcome: 00:02 Discharge ordered by MD. arredondo 00:13 Discharged to home ambulatory, jj7 00:13 Condition: improved 00:13 Discharge instructions given to patient, Instructed on discharge instructions, follow up and referral plans. medication usage, Demonstrated understanding of instructions, follow-up care, medications, Prescriptions given X 2, 00:14 Patient left the ED. jj7 Signatures: Dispatcher [employer] EDMS Day Barker, PLUMBING MECHANIC-C PLUMBING MECHANIC-CkBruce Oates RN RN Zaira Ledezma jj6 Danyelle Alvarez RN RN jw7 Francisco Javier Cormier RN RN jj7 Mandie Hernández RN RN pf1
--- NOTE | 2023-08-27 00:02 | EDPHYS ---
Physician Documentation [facility] Name: Alfonso Weldon Age: 32 yrs Sex: Male : 1990 Arrival Date: 08/26/2023 Time: 21:19 Bed 7 Private MD: ED Physician Kirk Wyman HPI: 08/26 22:52 This 32 yrs old Male presents to ER via Ambulatory with complaints of kb Abdominal Pain, Nausea/Vomiting. 22:52 Patient is a 32-year-old male who presents for abdominal pain, nausea and vomiting that kb has been intermittent for years but has been more constant over the last 2 days. States he has not been seen for this in the past. Denies fever, diarrhea.. Historical: - Allergies: 21:29 No Known Allergies; jj7 - PMHx: 21:29 None; jj7 - PSHx: 21:29 HERNIA REPAIR; jj7 - Immunization history:: Adult Immunizations not immunized, Flu vaccine is not up to date. . - Social history:: Smoking status: Patient reports the use of cigarette tobacco products, denies chronic smoking, but will smoke occasionally, Patient/guardian denies using alcohol, street drugs. ROS: 22:52 Constitutional: Negative for fever, chills, and weight loss, kb 22:52 Abdomen/GI: Positive for abdominal pain, nausea and vomiting, 22:52 All other systems are negative, Exam: 22:52 Constitutional: This is a well developed, well nourished patient who is awake, alert, kb and in no acute distress. Head/Face: Normocephalic, atraumatic. ENT: Moist Mucous membranes Cardiovascular: Regular rate Respiratory: Respirations even and unlabored. No increased work of breathing. Talking in full sentences Skin: Warm, dry with normal turgor. Normal color. MS/ Extremity: Pulses equal, no cyanosis. Neurovascular intact. Full, normal range of motion. Neuro: Awake and alert, GCS 15, oriented to person, place, time, and situation. Moves all extremities. Normal gait. 22:52 Abdomen/GI: Inspection: abdomen appears normal, Bowel sounds: normal, Palpation: abdomen is soft and non-tender, in all quadrants, Vital Signs: 21:25 BP 159 / 101; Pulse 76; Resp 18; Temp 98.1; Weight 81.65 kg; Height 5 ft. 5 in. ; Pain jj7 0/10; 22:40 BP 156 / 98; Pulse 78; Resp 18 S; Pulse Ox 95% on R/A; jw7 23:25 BP 151 / 102; Pulse 73; Resp 17; Pulse Ox 99% ; jj7 08/27 00:13 BP 145 / 98; Pulse 71; Resp 17; Pulse Ox 99% ; Pain 0/10; jj7 08/26 21:25 Body Mass Index 29.95 (81.65 kg, 165.1 cm) 7 08/26 21:25 Pain Scale: Adult jj7 08/27 00:13 Pain Scale: Adult jj7 MDM: 08/26 21:23 Patient medically screened. kb 23:59 Differential diagnosis: gastritis, gastroesophageal reflux disease, Peptic Ulcer kb Disease. Data reviewed: vital signs, nurses notes. Counseling: I had a detailed discussion with the patient and/or guardian regarding the historical points, exam findings, and any diagnostic results supporting the discharge/admit diagnosis, lab results, radiology results, the need for outpatient follow up, a marketing content specialist, to return to the emergency department if symptoms worsen or persist or if there are any questions or concerns that arise at home. 08/26 21:27 Order name: CBC with Diff; Complete Time: 23:29 kb 08/26 21:27 Order name: CMP; Complete Time: 23:13 kb 08/26 20: Order name: Lipase; Complete Time: 23:13 kb 08/26 21:27 Order name: Urinalysis w/ reflexes; Complete Time: 21:56 kb 08/26 23:13 Order name: CT Abd/Pelvis - IV Contrast Only 08/26 21:27 Order name: IV Saline Lock; Complete Time: 22:39 kb 08/26 20:27 Order name: Labs collected and sent; Complete Time: 22:39 kb Administered Medications: 22:39 Drug: NS 0.9% IV 1000 ml IV at 1 bolus Per protocol; 1000 mL bolus Route: IV; Rate: 1 jw7 bolus; Site: right antecubital; 23:40 Follow up: IV Status: Completed infusion j7 22:39 Drug: Famotidine IVP 20 mg IVP once; dilute with 10 mL 0.9% NaCl; give over 2 minutes jw7 Route: IVP; Site: right antecubital; 08/27 00:16 Follow up: Response: Marked relief of symptoms jj7 08/26 22:39 Drug: Ondansetron IVP 4 mg IVP once; over 2 minutes Route: IVP; Site: right antecubital;jw7 08/27 00:16 Follow up: Response: Marked relief of symptoms jj7 Disposition: 00:01 Co-signature as Attending Physician, Kirk Wyman MD I agree with the assessment sp4 and plan of care. I reviewed the patient's care provided by Advanced Practice Provider \T\ agree w/ the diagnosis \T\ care plan. I personally saw the pt \T\ performed a substantive portion of the visit, incldng all aspects of the (History/Exam/Medical Decision Making). Disposition Summary: 08/27/23 00:02 Discharge Ordered Notes: Location: Home kb Condition: Stable kb Diagnosis - Upper abdominal pain, unspecified kb Followup: kb - With: Emergency Department - When: As needed - Reason: Worsening of condition Followup: kb - With: Private Physician - When: 2 - 3 days - Reason: Recheck today's complaints, Continuance of care, Re-evaluation by your physician Discharge Instructions: - Discharge Summary Sheet kb - Gastroesophageal Reflux Disease, Adult kb Forms: - Medication Reconciliation Form kb - Thank You Letter kb - Antibiotic Education kb - Prescription Opioid Use kb - Patient Portal Instructions kb - Leadership Thank You Letter kb Prescriptions: - Protonix 40 mg Oral Tablet - take 1 tablet ORAL route once daily; 30 tablet; Refills: 0, Product Selection kb Permitted - Zofran 4 mg Oral tablet - take 1 tablet ORAL route every 6 hours As needed; 12 tablet; Refills: 0, kb Product Selection Permitted Signatures: Dispatcher [employer] Day Jefferson, Danyelle Duque RN RN jw7 Francisco Javier Cormier RN RN jj7 Kirk Wyman MD MD sp4
[2023-08-27 06:53] VITALS: TEMP 98.1; O2SAT 99
[2023-08-27 07:07] VITALS: BP 145/98
--- NOTE | 2023-08-27 10:52 | RAD REPORT ---
EXAM DESCRIPTION: CT - Abdomen Pelvis W Contrast - 08/27/2023 6:50 am CLINICAL HISTORY: The patient is 32 years old and is Male; ABD PAIN TECHNIQUE: Axial computed tomography images of the abdomen and pelvis with intravenous contrast. S agittal and coronal reformatted images were created and reviewed. This CT exam was performed using one or more of the following dose reduction techniques: automated exposure control, adjustment of t he mA and/or kV according to patient size, and/or use of iterative reconstruction technique. COMPARISON: No relevant prior studies available. FINDINGS: LUNG BASES: Minimal atelectasis within the right lower lobe is present. The lung bases a re otherwise clear. ABDOMEN: LIVER: The liver is enlarged and diffusely fatty. GALLBLADDER AND BILE DUCTS: No calcified stones. No ductal dilation. PANCREAS: No ductal dilation. No mass. SPLEEN: Unremarkable. ADRENALS: Unremarkable. No mass. KIDNEYS AND URETERS: Unremarkable. The kidneys enhance symmetrically. No obstructing renal or ure teral calculus is seen. No hydronephrosis or hydroureter. No perinephric fluid or stranding. STOMACH AND BOWEL: The stomach is distended with fluid. The small bowel is relatively normal in c aliber. A moderate amount of stool is present throughout the colon. There is no mucosal thickening or evidence of obstruction. PELVIS: APPENDIX: The appendix is normal in caliber without surrounding inflammation. BLADDER: The bladder is moderately distended. REPRODUCTIVE: Unremarkable as visualized. ABDOMEN and PELVIS: INTRAPERITONEAL SPACE: Unremarkable. No free air. No significant fluid collection. BONES/JOINTS: No acute fracture. SOFT TISSUES: The soft tissues are normal. VASCULATURE: Unremarkable. No abdominal aortic aneurysm. LYMPH NODES: Unremarkable. No enlarged lymph nodes. IMPRESSION: No acute findings on this contrasted CT of the abdomen and pelvis to explain the patient 's symptoms. Electronically signed by: Sheryl St MD 08/26/2023 11:56 PM VENTILATOR SPECIALIST Due to temporary technical issues with the PACS/Fluency reporting system, reports are being signed by the in house radiologists without review as a courtesy to insure prompt reporting. The interpreting radiologist is fully responsible for the content of the report.
== END ==
LOC: ER 21:19
DX: R10.10 Upper abdominal pain, unspecified (principal); R11.2 Nausea with vomiting, unspecified; F17.210 Nicotine dependence, cigarettes, uncomplicated
CPT/HCPCS: 96361; 85025; 81001; 36415; 83690; 80053; 74177; 96375; 96374; 99284; Q9967; J2405; J7030